=== PATIENT | female | born 1980 | race American Indian/Alaskan Native ===

== ENCOUNTER 2018-10-02 08:39 | Outpatient (CLI) | payer BC ==
[2018-10-02 11:21] VITALS: BP 122/66
== END 2018-10-02 12:05 | disposition home or self-care (01) ==
LOC: TRG 08:39
PROVIDERS: ATTEND Obstetrics & Gynecology
DX: O47.02 False labor before 37 completed weeks of gestation, second trimester (principal); Z3A.20 20 weeks gestation of pregnancy

== ENCOUNTER 2019-02-12 01:33 | Inpatient (IN) | payer BC, OTHER ==
[2019-02-12] MEDS ORDERED: LACTATED RINGERS 1,000 ML IV ONE (03:03)
--- NOTE | 2019-02-12 04:15 | Ultrasound Report ---
Limited OB ultrasound for biophysical profile FINDINGS: breathing movement, motion, tone and qualitative HENRIQUE all score 2/2 for a total score of 8/8. heart rate is 126 bpm. Signer Name: Felipe Hillman MD Signed: 02/12/2019 4:11 AM Workstation Name: [id number]
[2019-02-12] MEDS ORDERED: LIDOCAINE (2%) 20 MG/1 ML VIAL 20 ML MDV INFILTRATI ONE (05:57)
[2019-02-12] MEDS ORDERED: TERBUTALINE 1 MG/1 ML INJ SUB-Q PRN (05:57)
[2019-02-12] MEDS ORDERED: ONDANSETRON 4 MG/2 ML INJ IV PRN (05:57)
[2019-02-12] MEDS ORDERED: ePHEDrine SULFATE 50 MG/1 ML INJ IV PRN (05:57)
[2019-02-12] MEDS ORDERED: MINERAL OIL 30 ML ORAL LIQD PO PRN (05:57)
[2019-02-12] MEDS ORDERED: fentaNYL 100 MCG/2 ML INJ IV PRN (05:57)
[2019-02-12] MEDS ORDERED: LACTATED RINGERS 1,000 ML IV SCH (06:00)
[2019-02-12] MEDS ORDERED: OXYTOCIN 20 UNIT/1000ML DRIP 20 UNITS/1,000 ML BAG IV SCH ×2 (06:00→11:00)
[2019-02-12] MEDS ORDERED: OXYTOCIN DRIP 30 UNITS/500 ML BAG IV SCH (06:00)
[2019-02-12 06:14] LABS: Hematocrit 35.7 % (30.3-42.9); Hemoglobin 11.9 gm/dl (10.1-14.3); Mean Corpuscular HGB Conc 33 % (30-34); Mean Corpuscular Volume 91 fl (79-97); Platelet Count 217 K/mm3 (140-440); Red Blood Count 3.94 M/mm3 (3.65-5.03); Red Cell Distribution Width 14.2 % (13.2-15.2)
--- NOTE | 2019-02-12 07:05 | History and Physical Report ---
History of Present Illness Date of examination: 02/12/19 (Pt states contractions that started in the AM on 02/11/2019, then SROM @ 0630 on 02/12/2018.) Date of admission: 02/12/19 05:57 Chief complaint: Pt states contractions started around 0230 am on 02/11/2019, and that she SROM for brown fluid on 02/12/2019 @ 0630. History of present illness: EDC Confirmation: 02/16/2019 Gestational Age: 8 2/7 weeks Past History : 5 Term Births: 1 Living Children: 1 Para: 1 Aborta: 3 Elect. Ab: 1 Spont. Ab: 2 # 1 Delivery date: 10/02/1999 Weeks Gestation: 40 Delivery type: Hours of labor: 12 Anesthesia type: none Delivery location: [facility] Infant Sex: Male weight: 8lbs 9oz Name: Palomo Comments: none # 2 Delivery date: 11/28/2008 Delivery type: EAB # 3 Delivery date: 2017 Delivery type: SAB # 4 Delivery date: 2018 Delivery type: SAB Past Medical History: Reviewed history from 09/01/2014 and no changes required: Negative Past Medical History morbidly obese lost 133 pounds Past Surgical History: Reviewed history from 06/20/2016 and no changes required: D&C: 2009 lap band 2010. north side fell ruptured the stomach. required emergancy epl lap. tore the stomach. 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 Smoking History: Patient has never smoked. Infection History Hx of STD: HSV HIV Risk Eval: low risk Hepatitis B Risk Eval: low risk Personal hx. of genital herpes: yes Partner hx. of genital herpes: no Rash, Viral, or Febrile illness since last LMP? no Varicella/Chicken Pox Status: Previous Disease Genetic History ADVANCED MATERNAL AGE Congenital Heart Defect: Mom: no Dad: no Jason Disease: Mom: no Dad: no Thalassemia Mom: no Dad: no Neural Tube Defect Mom: no Dad: no Down's Syndrome Mom: no Dad: no Jon-Sachs Mom: no Dad: no Sickle Cell Disease/Trait Mom: no Dad: no Hemophilia Mom: no Dad: no Muscular Dystrophy Mom: no Dad: no Cystic Fibrosis Mom: no Dad: no [place] Chorea Mom: no Dad: no Mental Retardation Mom: no Dad: no Fragile X Mom: no Dad: no Other Genetic/Chromosomal Disorder Mom: no Dad: no Child w/other defect Mom: no Dad: no Enviromental Exposures Xray Exposure: no Medication, drug, or alcohol use since LMP: no Chemical/Other Exposure: no Exposure to Cat Liter: no Hx of Parvovirus (Fifth Disease): no Occupational Exposure to Children: none Active Medications (reviewed today): PNV () MEDROXYPROGESTERONE ACETATE 10 MG ORAL TABLET (MEDROXYPROGESTERONE ACETATE) 1 tablet daily for 10 days. Current Allergies (reviewed today): BENADRYL (CAMPHOR GEL) (Critical) DIMETAPP (Critical) Past History Past Surgical History: D&C, other (Lap band placed. Fell and stomach ruptured, then lap band placed. 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 History: other (D&C) Family/Genetic History: none Social history: no significant social history - Obstetrical History Expected Date of Delivery: 02/16/19 Actual Gestation: 39 Week(s) 3 Day(s) : 5 Para: 1 Hx # Term Pregnancies: 1 Number of Pregnancies: 0 Spontaneous Abortions: 2 Induced : 1 Number of Living Children: 1 Medications and Allergies Allergies Allergy/AdvReac Type Severity Reaction Status Date / Time diphenhydramine Allergy Mild Shortness Verified 02/12/19 02:13 [From Benadryl] of Breath phenylpropanolamine Allergy Mild Unknown Verified 02/12/19 02:12 [From Dimetapp (brompheniramine-PPA)] brompheniramine Allergy Unknown Verified 02/12/19 02:12 [From Dimetapp (brompheniramine-PPA)] Home Medications Medication Instructions Recorded Confirmed Last Taken Type Vit-Fe Fumar-FA [ 1 tab PO QDAY 10/02/18 10/02/18 10/01/18 21:00 History Vitamin] 1 Active Meds: Active Medications Ephedrine Sulfate (Ephedrine Sulfate) 10 mg IV Q2M PRN PRN Reason: Hypotension Fentanyl (Sublimaze) 100 mcg IV Q2H PRN PRN Reason: Labor Pain Oxytocin/Sodium Chloride (Pitocin/Ns 20 Unit/1000ml Drip) 20 units in 1,000 mls @ 125 mls/hr IV DIRECT CHERY Oxytocin/Sodium Chloride (Pitocin/Ns 30 Unit/500ml) 30 units in 500 mls @ 4 mls/hr IV TITR CHERY; Protocol Lactated Ringer's (Lactated Ringers) 1,000 mls @ 125 mls/hr IV DIRECT CHERY Mineral Oil (Mineral Oil) 30 ml PO QHS PRN PRN Reason: Constipation Ondansetron HCl (Zofran) 4 mg IV Q8H PRN PRN Reason: Nausea And Vomiting Terbutaline Sulfate (Brethine) 0.25 mg SUB-Q ONCE PRN PRN Reason: Hyperstimulation/Hypertonicity Review of Systems All systems: negative - Vital Signs Vital signs: Vital Signs Pulse Pulse Ox 60 96 02/12/19 01:53 02/12/19 01:53 Temp Pulse Resp BP Pulse Ox 51 L 16 103/51 97 02/12/19 06:58 02/12/19 02:13 02/12/19 02:13 02/12/19 06:58 - Physical Exam Breasts: Positive: deferred Cardiovascular: Regular rate Lungs: Positive: Normal air movement Abdomen: Positive: normal appearance Genitourinary (Female): Positive: normal external genitalia, normal perenium Vulva: both: normal Vagina: Positive: normal moisture Uterus: Positive: normal size Anus/Rectum: Positive: normal perianal skin Extremities: Positive: normal Deep Tendon Reflex Grade: Normal +2 - Obstetrical FHR: category 1 Uterine Contraction Monitor Mode: External Uterine Contraction Pattern: Regular Uterine Tone Measurement Phase: Resting Uterine Contraction Intensity: Moderate Results Result Diagrams: 02/12/19 03:30 GBS NEGATIVE HBsAg Screen Negative Negative *1 RPR Non Reactive Non Reactive *2 Rubella Antibodies, IgG 4.83 index Immune >0.99 *3 Non-immune <0.90 Equivocal 0.90 - 0.99 Immune >0.99 ABO Grouping B *4 Rh Factor Positive *5 Please note: Prior records for this patient's ABO / Rh type are not available for additional verification. Antibody Screen Negative Negative *6 WBC 6.5 x10E3/uL 3.4-10.8 *7 RBC 4.31 x10E6/uL 3.77-5.28 *8 Hemoglobin 12.0 g/dL 11.1-15.9 *9 Hematocrit 37.4 % 34.0-46.6 *10 MCV 87 fL 79-97 *11 MCH 27.8 pg 26.6-33.0 *12 MCHC 32.1 g/dL 31.5-35.7 *13 RDW [H] 17.4 % 12.3-15.4 *14 Platelets 245 x10E3/uL 150-450 *15 Neutrophils 60 % Not Estab. *16 Lymphs 32 % Not Estab. *17 Monocytes 7 % Not Estab. *18 Eos 1 % Not Estab. *19 Basos 0 % Not Estab. *20 ! Immature Cells <No Reported Value> *21 Neutrophils (Absolute) 3.9 x10E3/uL 1.4-7.0 *22 Lymphs (Absolute) 2.1 x10E3/uL 0.7-3.1 *23 Monocytes(Absolute) 0.4 x10E3/uL 0.1-0.9 *24 Eos (Absolute) 0.1 x10E3/uL 0.0-0.4 *25 Baso (Absolute) 0.0 x10E3/uL 0.0-0.2 *26 ! Immature Granulocytes 0 % Not Estab. *27 ! Immature Grans (Abs) 0.0 x10E3/uL 0.0-0.1 *28 ! NRBC <No Reported Value> *29 Hematology Comments: <No Reported Value> *30 Tests: (2) Panel 417391 ([id number]) HIV Screen 4th Generation wRfx Non Reactive Non Reactive *31 Tests: (3) HCV Ab w/Rflx to Verification ([id number]) ! HCV Ab 0.1 s/co ratio 0.0-0.9 *32 Tests: (4) Comment: ([id number]) ! Comment: SPRCS *33 Non reactive HCV antibody screen is consistent with no HCV infection, unless recent infection is suspected or other evidence exists to indicate HCV infection. Tests: (5) Urine Culture, Routine ([id number]) Urine Culture, Routine Final report *34 Tests: (6) Result ([id number]) ! Result 1 No growth *35 Assessment and Plan A: Pt is 38 y.o. @ 39+ wks with ctxs started on 02/11/2019 @ 0230am. With SROM today at 0630 for "brown fluid". GBS negative. P: Admit for augmentation of labor. Pitocin per protocol. Epidural for pain management.
[2019-02-12] MEDS ORDERED: BICITRA ORAL LIQD 30ML ONE (07:40)
[2019-02-12] MEDS ORDERED: METOCLOPRAMIDE 10 MG/2 ML INJ ONE (07:40)
[2019-02-12] MEDS ORDERED: FAMOTIDINE 20 MG/2 ML INJ IV ONE (07:40)
[2019-02-12] MEDS ORDERED: KETAMINE/STERILE WATER 50 MG/ML SYRINGE ONE (07:42)
[2019-02-12] MEDS ORDERED: PROPOFOL 200 MG/20 ML VIAL IV ONE ×2 (07:42→08:16)
[2019-02-12] MEDS ORDERED: ceFAZolin 1 GM VIAL IV ONE ×2 (07:51→07:57)
--- NOTE | 2019-02-12 07:55 | Event Note ---
Date: 02/12/19 ( deceleration) Went to room to check on pt and pt had received pain medication before entering room. BP's 90's/40's heart rate in the 80's. Pt was on her left lateral side. Cervical exam per nurse 4-5cm. Second cervical exam 7-8/100/+1. Internal monitoring attempted, but heart rate remained in the 80's. Decision made to move to OR. Dr. Jnae on the unit , Dr. Monson aware.
[2019-02-12] MEDS ORDERED: ceFAZolin 1 GM VIAL ONE ×2 (07:59→08:12)
[2019-02-12] MEDS ORDERED: dexAMETHasone 20 MG/5 ML VIAL ONE (08:12)
[2019-02-12] MEDS ORDERED: KETOROLAC 30 MG/1 ML INJ ONE (08:12)
[2019-02-12] MEDS ORDERED: OXYTOCIN 10 UNIT/1 ML INJ ONE (08:12)
[2019-02-12] MEDS ORDERED: DEXMEDETOMIDINE 200 MCG/2 ML VIAL IV ONE (08:12)
[2019-02-12] MEDS ORDERED: ONDANSETRON 4 MG/2 ML INJ ONE (08:12)
[2019-02-12] MEDS ORDERED: SUCCINYLCHOLINE CHLORIDE 200 MG/10 ML INJ MDV ONE (08:12)
[2019-02-12] MEDS ORDERED: SODIUM CHLORIDE 0.9% 100 ML ONE (08:21)
--- NOTE | 2019-02-12 08:57 | Post Operative Note ---
Pre-op diagnosis: NRFHTs Post-op diagnosis: same Findings: viable male, apg 10/03 Procedure: Emergency c/s Anesthesia: GETShalonda Surgeon: BRANDON RICO Box Finisher: MARIANO RICKETTS Estimated blood loss: other (500mL) Pathology: list (placenta) Specimen disposition: to lab Condition: stable Disposition: PACU
--- NOTE | 2019-02-12 08:59 | Anesthesia Consultation ---
Anesthesia Consult and Med Hx Date of service: 02/12/19 - Airway Anesthetic Teeth Evaluation: Poor ROM Head & Neck: Adequate Mental/Hyoid Distance: Adequate Mallampati Class: Class II Intubation Access Assessment: Probably Good - Pulmonary Exam CTA: Yes - Cardiac Exam Cardiac Exam: RRR - Pre-Operative Health Status ASA Pre-Surgery Classification: ASA2, Emergency Proposed Anesthetic Plan: General - Pulmonary Hx Asthma: Yes (child) COPD: No Hx Pneumonia: No - Cardiovascular System Hx Hypertension: Yes (last 1999) - Central Nervous System Hx Seizures: No Hx Psychiatric Problems: No - Endocrine Hx Renal Disease: No Hx End Stage Renal Disease: No Hx Hypothyroidism: No Hx Hyperthyroidism: No - Hematic Hx Anemia: No Hx Sickle Cell Disease: No - Other Systems Hx Alcohol Use: No
--- NOTE | 2019-02-12 09:00 | Anesthesia Day of Surgery ---
Anesthesia Day of Surgery - Day of Surgery Patient Examined: Yes Patient H&P Reviewed: No (emergency) Patient is NPO: No (unknown, emergency)
[2019-02-12] MEDS ORDERED: MORPHINE 2 MG/1 ML INJ IV PRN (11:00)
[2019-02-12] MEDS ORDERED: NALOXONE 0.4 MG/1 ML INJ IV PRN (11:00)
[2019-02-12] MEDS ORDERED: LANOLIN/ZINC/DIMETHICONE (LANSINOH) 7 GM TP PRN (11:00)
[2019-02-12] MEDS ORDERED: D5W/LACTATED RINGERS 1,000 ML IV SCH (11:00)
[2019-02-12] MEDS ORDERED: WITCH HAZEL/ GLYCERIN PAD TP PRN (11:00)
[2019-02-12] MEDS ORDERED: MORPHINE 4 MG/1 ML INJ IV PRN (11:00)
[2019-02-12] MEDS ORDERED: SIMETHICONE 80 MG CHEW TAB PO PRN (11:00)
[2019-02-12] MEDS ORDERED: PROMETHAZINE 25 MG RECT SUPP PR PRN (11:00)
--- NOTE | 2019-02-12 11:05 | Post Anesthesia Evaluation ---
- Post Anesthesia Evaluation Patient Participated: Yes Airway Patent: Yes Stable Respiratory Function: Yes Nausea/Vomiting: No Temp > 96.8F: Yes Pain Manageable: Yes Adequeate Hydration: Yes Anesthesia Complications: No Block Receding Appropriately: Not Applicable
[2019-02-12] MEDS: ACETAMINOPHEN 325 MG TAB PO SCH ×3 (11:36→21:20)
--- NOTE | 2019-02-12 11:48 | Event Note ---
Date: 02/12/19 Recv'd call at 1133 from [facility] L&D lottery manager requesting an abdominal xray due to concerns with the surgical count.
--- NOTE | 2019-02-12 12:35 | XRay Report ---
ABDOMEN 1 VIEW(S) INDICATION / CLINICAL INFORMATION: Instrument count-foreign body.. COMPARISON: None available. FINDINGS: TUBES / LINES: None. BOWEL GAS PATTERN: No significant abnormality. FREE AIR / EXTRALUMINAL GAS: None seen. ADDITIONAL FINDINGS: No significant additional findings. IMPRESSION: 1. No significant abnormality. No foreign body identified. Signer Name: Yair Alvares MD Signed: 02/12/2019 12:31 PM Workstation Name: [id number]
[2019-02-12] MEDS: KETOROLAC 30 MG/1 ML INJ IV SCH ×2 (14:45→20:28)
[2019-02-12] MEDS: ceFAZolin/NS 1 GM/50 ML 1 GM/50 ML BAG IV SCH (15:57)
--- NOTE | 2019-02-12 17:48 | Operative Report ---
Operative Report Operative Report: Date of procedure: 02/12/2019 Pre-operative diagnosis: 39 weeks gestation Advanced maternal age Meconium stained amniotic fluid Category 3 tracing Remote from delivery Post-operative diagnosis: Same Procedure name(s): Stat Primary low transverse section via Pfannenstiel skin incision Surgeon: Dr. Padilla Micropaleontologist: Dr. Suyapa Monson Anesthesia: Gen. endotracheal anesthesia EBL: 500 mL Urine output: Fluids: Findings: Liveborn male Apgars of 8 and 8 at one and 5 minutes Grossly normal fallopian tubes and ovaries bilaterally Indications: Provided arrived on the unit noting that Jude Husain had been called for patient due to prolonged bradycardia. Patient was noted to be in the operating room 1 provider arrived and heart tones were noted to be in the low 1 teens to 100s. Patient was examined by news gathering technician and provider made aware that patient appeared to have an anterior lip presenting. Patient was then asked to push to see if there would be reduction of the anterior lip. There was no reduction of the anterior lip and due to pain patient was not able to push effectively. Decision was made at that time to proceed with stat section n Procedure: Patient was taking to the operating room. Patient was then prepped and draped in sterile fashion. She was placed under general anesthesia. A low transverse skin incision was made with the scalpel and carried down to the underlying layer of fascia with the scalpel. The fascia was then incised in the midline and this incision was extended bilaterally with the scalpel. The rectus muscles were then bluntly divided in the midline. The peritoneum was identified and entered into bluntly. The bladder blade was placed. A lower transverse uterine incision was made with the scalpel and extended bilaterally with the blunt dissection. Conium stained fluid was noted upon entry into the uterine cavity. The 's head was then delivered atraumatically. The anterior shoulder and rest of infant delivered without difficulty. The umbilical cord was clamped x2. The cord was cut. The was then placed in sterile bassinet. The cord blood was collected. The placenta was manually extracted in its entirety. The uterus was exteriorized and cleared of all clots and debris. The uterine incision was closed using 0 Vicryl in a running locking fashion. A second imbricating layer of the same suture was then created. It was at this point that Dr. Suyapa Monson assumed care of the patient and completed the surgery. Please see her operative report for details on completion of the surgery. Patient was fairly hemostatic and stable upon my scrubbing out of the surgery.
[2019-02-12] MEDS: HYPROMELLOSE 0.5% OPHTH SOLN 15 ML OS PRN (19:19)
[2019-02-12 20:06] LABS: Hematocrit 30.7 % (30.3-42.9); Hemoglobin 10.5 gm/dl (10.1-14.3)
[2019-02-13] MEDS: ceFAZolin/NS 1 GM/50 ML 1 GM/50 ML BAG IV SCH (00:17)
[2019-02-13] MEDS: HYPROMELLOSE 0.5% OPHTH SOLN 15 ML OS PRN ×2 (01:03→05:47)
[2019-02-13] MEDS: KETOROLAC 30 MG/1 ML INJ IV SCH ×2 (01:46→07:59)
[2019-02-13] MEDS: ACETAMINOPHEN 325 MG TAB PO SCH (05:45)
--- NOTE | 2019-02-13 07:36 | Progress Note ---
Assessment and Plan A: 38 y.o. s/p due to bradycardia, PPD #1 P: Continue to monitor mother and status Continue with care Subjective - Subjective Date of service: 02/13/19 (Pt states doing well s/p . ) Principal diagnosis: delivery for bradycardia Interval history: EDC Confirmation: 02/16/2019 Gestational Age: 8 2/7 weeks Past History : 5 Term Births: 1 Living Children: 1 Para: 1 Aborta: 3 Elect. Ab: 1 Spont. Ab: 2 # 1 Delivery date: 10/02/1999 Weeks Gestation: 40 Delivery type: Hours of labor: 12 Anesthesia type: none Delivery location: [facility] Infant Sex: Male weight: 8lbs 9oz Name: Palomo Comments: none # 2 Delivery date: 11/28/2008 Delivery type: EAB # 3 Delivery date: 2017 Delivery type: SAB # 4 Delivery date: 2018 Delivery type: SAB Past Medical History: Reviewed history from 09/01/2014 and no changes required: Negative Past Medical History morbidly obese lost 133 pounds Past Surgical History: Reviewed history from 06/20/2016 and no changes required: D&C: 2009 lap band 2010. north side fell ruptured the stomach. required emergancy epl lap. tore the stomach. 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 Smoking History: Patient has never smoked. Infection History Hx of STD: HSV HIV Risk Eval: low risk Hepatitis B Risk Eval: low risk Personal hx. of genital herpes: yes Partner hx. of genital herpes: no Rash, Viral, or Febrile illness since last LMP? no Varicella/Chicken Pox Status: Previous Disease Genetic History ADVANCED MATERNAL AGE Congenital Heart Defect: Mom: no Dad: no Jason Disease: Mom: no Dad: no Thalassemia Mom: no Dad: no Neural Tube Defect Mom: no Dad: no Down's Syndrome Mom: no Dad: no Jon-Sachs Mom: no Dad: no Sickle Cell Disease/Trait Mom: no Dad: no Hemophilia Mom: no Dad: no Muscular Dystrophy Mom: no Dad: no Cystic Fibrosis Mom: no Dad: no [place] Chorea Mom: no Dad: no Mental Retardation Mom: no Dad: no Fragile X Mom: no Dad: no Other Genetic/Chromosomal Disorder Mom: no Dad: no Child w/other defect Mom: no Dad: no Enviromental Exposures Xray Exposure: no Medication, drug, or alcohol use since LMP: no Chemical/Other Exposure: no Exposure to Cat Liter: no Hx of Parvovirus (Fifth Disease): no Occupational Exposure to Children: none Active Medications (reviewed today): PNV () MEDROXYPROGESTERONE ACETATE 10 MG ORAL TABLET (MEDROXYPROGESTERONE ACETATE) 1 tablet daily for 10 days. Current Allergies (reviewed today): BENADRYL (CAMPHOR GEL) (Critical) DIMETAPP (Critical) Patient reports: appetite normal, voiding normally, pain well controlled, flatus, ambulating normally : doing well Objective - Vital Signs Latest vital signs: Vital Signs Temp Pulse Resp BP BP Pulse Ox 02/13/19 05:00 97.8 F 59 L 20 118/49 97 02/13/19 01:20 98.4 F 54 L 20 91/52 95 02/12/19 21:18 98.7 F 56 L 20 106/55 97 02/12/19 17:11 98.2 F 47 L 16 100/52 02/12/19 10:51 57 L 16 103/50 100 02/12/19 10:35 97.5 F L 57 L 16 103/50 98 02/12/19 10:00 97.0 F L 49 L 19 92/54 98 02/12/19 09:45 52 L 20 95/45 98 02/12/19 09:30 58 L 21 99/45 98 02/12/19 09:15 61 21 92/51 99 02/12/19 09:10 63 19 92/51 99 02/12/19 09:05 60 20 95/49 100 02/12/19 09:00 96.0 F L 61 21 97/49 100 02/12/19 07:36 88 98 Intake and Output 02/12/19 02/13/19 02/13/19 22:59 06:59 14:59 Intake Total 50 120 Output Total 2200 1200 Balance -2150 -1080 Intake: IV 50 ANCEF/NS 1 GM/50 ML 1 gm 50 In 50 ml @ 100 mls/hr IV Q8H [facility] Rx#:[id number] Oral 120 Output: Urine 2200 1200 Indwelling Catheter 2200 Void 1200 Other: Total, Intake Amount 120 Total, Output Amount 400 700 # Voids Void 1 - Exam Breasts: Present: deferred Cardiovascular: Present: Regular rate Lungs: Present: Normal air movement Abdomen: Present: normal appearance, soft, normal bowel sounds Vulva: both: normal Uterus: Present: normal, firm, other (Minimal rubra) Extremities: Present: normal Deep Tendon Reflex Grade: Normal +2 Incision: Present: dry, intact, other (No draninage on dressing noted.), dressed
[2019-02-13] MEDS ORDERED: TETANUS,DIPH,PERTUSS(ACELL) VACCINE 0.5 ML SYRINGE IM ONE (10:00)
--- NOTE | 2019-02-13 10:25 | Operative Report ---
PREOPERATIVE DIAGNOSIS: Please see Dr. Padilla's note, intrauterine at 39 weeks, advanced maternal age, meconium stained amniotic fluid, active labor, category 3 tracing remote from delivery. POSTOPERATIVE DIAGNOSIS: Please see Dr. Padilla's note, intrauterine at 39 weeks, advanced maternal age, meconium stained amniotic fluid, active labor, category 3 tracing remote from delivery. PROCEDURE: Stat primary low transverse via Pfannenstiel incision. SURGEON: Dr. Monson. CO-SURGEON: Suyapa Monson MD ANESTHESIA: General endotracheal anesthesia. ESTIMATED BLOOD LOSS: 500 mL. FINDINGS: Liveborn male , weight unknown at the time of this note. Apgars 8 and 8, 8 at 1 minute, 8 at 5 minutes. Grossly normal uterus, tubes, and ovaries. As mentioned previously, please see Dr. Padilla's previous note. DESCRIPTION OF PROCEDURE: Upon arrival, the uterus was exteriorized and the uterine incision had been closed. There was bleeding noted on the left aspect of the incision that was made hemostatic with a 2-0 Vicryl in a [id number] fashion. Approximately 5 cm hematoma was noted involving the cardinal ligament, however, upon prolonged visualization and manipulation, the hematoma appeared stable. The bladder flap and/or the bladder and/or ureters appeared to be involved. The uterus was allowed back into the pelvic cavity. The incision was irrigated with warm normal saline. Once hemostasis was noted, Surgicel was applied for further hemostasis, at which point, the rectus muscles were reapproximated using 0 Vicryl interrupted simple stitch x 4. Once hemostasis was noted, the fascia was reapproximated using 0 Vicryl in a simple running stitch. Once hemostasis was noted, the subcuticular adipose tissue was reapproximated using 0 Vicryl in a simple stitch x 3. The skin was reapproximated using 4-0 Vicryl on a Jhon needle in subcuticular manner. The counts were correct x 3. The procedure was ended and the patient was taken to recovery room in stable condition. JOB# [id number] MARIFERR/MONIKA
[2019-02-13] MEDS: oxyCODONE /ACETAMINOPHEN 5-325MG TAB PO PRN ×2 (11:07→17:41)
[2019-02-13] MEDS ORDERED: FLU VACC QUAD 2019-20 (3 YR UP)/PF 60 MCG/0.5 ML SYRINGE IM ONE (12:00)
[2019-02-13] MEDS: IBUPROFEN 800 MG TAB PO PRN ×2 (14:17→19:43)
[2019-02-14] MEDS: oxyCODONE /ACETAMINOPHEN 5-325MG TAB PO PRN ×5 (00:08→22:44)
[2019-02-14] MEDS: ALUM-MAG HYDROXIDE-SIMETHICONE 200-200-20MG/5ML ORAL LIQD 30 ML PO PRN ×2 (00:38→09:10)
--- NOTE | 2019-02-14 00:52 | XRay Report ---
CHEST 1 VIEW INDICATION / CLINICAL INFORMATION: chest tightness. COMPARISON: None available. FINDINGS: SUPPORT DEVICES: None. HEART / MEDIASTINUM: No significant abnormality. LUNGS / PLEURA: No significant pulmonary or pleural abnormality. No pneumothorax. There is minimal le ft basilar atelectasis. ADDITIONAL FINDINGS: No significant additional findings. IMPRESSION: 1 No significant abnormality. Signer Name: Felipe Hillman MD Signed: 02/14/2019 12:48 AM Workstation Name: [id number]
--- NOTE | 2019-02-14 01:20 | Progress Note ---
Assessment and Plan - Patient Problems (1) Chest pain Current Visit: Yes Status: Acute Qualifiers: Chest pain type: other chest pain Qualified Code(s): R07.89 - Other chest pain; R07.8 - Other chest pain Plan to address problem: Patient had earlier EKG which shows sinus rhythm atrial premature complexes official reading still pending at this time patient went cardiac history. Patient with normal chest x-ray and O2 sats 9900% on room air. Pain does not appear to be cardiac possible etiology reflux versus musculoskeletal costochondritis will obtain a hospitalist consult the pain persists as treatment of reflux disease. Repeat CBC is pending (2) Status post section Current Visit: Yes Status: Acute (3) H/O gastric bypass Current Visit: Yes Status: Acute Subjective Date of service: 02/14/19 Principal diagnosis: delivery for bradycardia Interval history: Called to see patient secondary to her second complaint of chest tightness. Patient states she feels a little midsternal pain sometimes with taking a deep breath or coughing. She denies any radiation of pain or productive cough. Objective - Constitutional Vitals: Vital Signs - 12hr 02/13/19 02/13/19 02/14/19 16:09 18:00 00:55 Temperature 98.3 F 98.5 F Pulse Rate 60 97 H 59 L Respiratory 18 21 20 Rate Blood Pressure 92/36 Blood Pressure 98/45 [Left] O2 Sat by Pulse 98 99 98 Oximetry 02/14/19 00:56 Temperature 98.2 F Pulse Rate Respiratory 20 Rate Blood Pressure 95/56 Blood Pressure [Left] O2 Sat by Pulse Oximetry General appearance: Present: no acute distress, obese, other (patient presently breast-feeding her baby) - Neck Neck: supple - Respiratory Respiratory effort: normal - Breasts Breasts: deferred - Cardiovascular Rhythm: regular Extremities: no ischemia Extremity abnormal: edema - Gastrointestinal General gastrointestinal: Present: soft Rectal Exam: deferred - Genitourinary Female genitourinary: deferred - Integumentary Integumentary: clear, warm, dry - Neurologic Neurologic: moves all extremities - Psychiatric Psychiatric: memory intact, appropriate mood/affect, intact judgment & insight - Labs CBC & Chem 7: 02/12/19 19:49 - Imaging and cardiology EKG: report reviewed Chest x-ray: report reviewed Medications & Allergies - Medications Allergies/Adverse Reactions: Allergies diphenhydramine [From Benadryl] Allergy (Mild, Verified 02/12/19 02:13) Shortness of Breath phenylpropanolamine [From Dimetapp (brompheniramine-PPA)] Allergy (Mild, Verified 02/12/19 02:12) Unknown Had as a child. States her mother told her she had a reaction not sure reaction. brompheniramine [From Dimetapp (brompheniramine-PPA)] Allergy (Verified 02/12/19 02:12) Unknown Had reaction as a child; mother told her she had a reaction; unknown reaction by patient. Home Medications: Home Medications Medication Instructions Recorded Confirmed Last Taken Type Vit-Fe Fumar-FA [ 1 tab PO QDAY 10/02/18 02/12/19 02/12/19 13:52 History Vitamin] Ibuprofen [Motrin 800 MG tab] 800 mg PO TID PRN #30 tablet 02/12/19 Unknown Rx Lidocain2.5%/Prilocai2.5% [Emla] 5 gm TP ONCE #1 tube 02/12/19 Unknown Rx oxyCODONE /ACETAMINOPHEN [Percocet 1 tab PO Q6HR PRN #20 tablet 02/12/19 Unknown Rx 5/325 mg] Active Medications: Generic Name Dose Route Start Last Admin Trade Name Rubén PRN Reason Stop Dose Admin Acetaminophen 650 mg 02/12/19 12:00 02/13/19 05:45 Tylenol PO 650 mg Q6H CHERY Administration Al Hydrox/Mg Hydrox/Simethicone 30 ml 02/14/19 00:29 02/14/19 00:38 Alum-Mag Hydrox-Simeth [id number]/5ml PO 30 ml Q4H PRN Administration Indigestion Artificial Tears 1 drops 02/12/19 17:47 02/13/19 05:47 Isopto Tears 0.5% OS 1 drops Q6H PRN Administration Dry Eye(s) Dextrose/Lactated Ringer's 1,000 mls @ 125 mls/hr 02/12/19 11:00 02/12/19 20:34 D5lr IV 125 mls/hr DIRECT CHERY Administration Oxytocin/Sodium Chloride 20 units in 1,000 mls @ 250 mls/hr 02/12/19 11:00 Pitocin/Ns 20 Unit/1000ml Drip IV DIRECT CHERY Ibuprofen 800 mg 02/13/19 08:45 02/13/19 19:43 Ibuprofen PO 800 mg Q6H PRN Administration Pain, Mild (1-3) Morphine Sulfate 2 mg 02/12/19 11:00 02/12/19 17:04 Morphine IV 2 mg Q4H PRN Administration Pain, Moderate (4-6) Morphine Sulfate 4 mg 02/12/19 11:00 02/13/19 01:02 Morphine IV 4 mg Q4H PRN Administration Pain , Severe (7-10) Multi-Ingredient Ointment 1 applic 02/12/19 11:00 Lansinoh TP PRN PRN dryness/cracking Naloxone HCl 0.1 mg 02/12/19 11:00 Naloxone IV Q2MIN PRN Res Rate </= 8 or 02 SAT < 92% Oxycodone/Acetaminophen 1 tab 02/13/19 08:45 02/14/19 00:08 Percocet 5/325 PO 1 tab Q6H PRN Administration Pain, Moderate (4-6) Promethazine HCl 25 mg 02/12/19 11:00 Phenergan DC Q6H PRN N/V IF NPO AND NO IV ACCESS Simethicone 80 mg 02/12/19 11:00 Mylicon PO Q6H PRN Gas pain Sodium Chloride 10 ml 02/12/19 11:00 Sodium Chloride Flush Syringe 10 Ml IV 02/22/19 10:59 PRN NR Witch Crista/Glycerin 1 each 02/12/19 11:00 Tucks Pad TP PRN PRN Hemorrhoids/cleansing/soothing
[2019-02-14 01:30] LABS: Basophils % (Auto) 0.3 % (0.0-1.8); Eosinophils # (Auto) 0.1 K/mm3 (0.0-0.4); Hemoglobin 8.7 gm/dl (10.1-14.3); Lymphocytes # (Auto) 2.4 K/mm3 (1.2-5.4); Lymphocytes % (Auto) 20.2 % (13.4-35.0); Mean Corpuscular HGB Conc 34 % (30-34); Mean Corpuscular Volume 91 fl (79-97); Monocytes # (Auto) 0.8 K/mm3 (0.0-0.8); Monocytes % (Auto) 7.1 % (0.0-7.3); Platelet Count 169 K/mm3 (140-440); Red Blood Count 2.87 M/mm3 (3.65-5.03); Red Cell Distribution Width 15.1 % (13.2-15.2)
[2019-02-14] MEDS ORDERED: FAMOTIDINE 20 MG/2 ML INJ IV SCH (02:00)
[2019-02-14] MEDS ORDERED: NITROGLYCERIN 0.4 MG TAB SUBL SL PRN (02:16)
[2019-02-14] MEDS: IBUPROFEN 800 MG TAB PO PRN ×2 (02:24→09:09)
--- NOTE | 2019-02-14 02:50 | Consultation ---
<ANTONIO ABBASI - Last Filed: 02/14/19 02:55> History of Present Illness - Reason for Consult Consult date: 02/14/19 Chest Pain Requesting physician: LORRAINE FROST - History of Present Illness 38-year-old -Iraqi female with history of HSV and obesity who is s/p delivery on 02/12/19. We are asked to see patient in consultation for chest pain. Pt states that she has midsternal non radiating chest pain, wh ich she rates 4/10. She describes the pain as chest pressure. The pain is intermittent. It is present with deep inspiration and cough. She denies SOB, pain radiation, n/v, or diaphoresis. She is able to talk in complete sentences and maintain saturation of 99-100% on RA. Pt denies any previous cardiac work up. Thank you for the consult and allowing us follow along. Past History Past Medical History: other (obesity, HSV) Past Surgical History: (x1 (02/12/2019)), Other ( x1, D&C (05/2016), Gastric Bypass (2010)) Social history: no significant social history, lives with family ([facility]). denies: smoking, alcohol abuse Family history: CAD (maternal grandmother at age 47), diabetes (father DM2) Medications and Allergies Allergies Allergy/AdvReac Type Severity Reaction Status Date / Time diphenhydramine Allergy Mild Shortness Verified 02/12/19 02:13 [From Benadryl] of Breath phenylpropanolamine Allergy Mild Unknown Verified 02/12/19 02:12 [From Dimetapp (brompheniramine-PPA)] brompheniramine Allergy Unknown Verified 02/12/19 02:12 [From Dimetapp (brompheniramine-PPA)] Home Medications Medication Instructions Recorded Confirmed Last Taken Type Vit-Fe Fumar-FA [ 1 tab PO QDAY 10/02/18 02/12/19 02/12/19 13:52 History Vitamin] Lidocain2.5%/Prilocai2.5% [Emla] 5 gm TP ONCE #1 tube 02/12/19 Unknown Rx oxyCODONE /ACETAMINOPHEN [Percocet 1 tab PO Q6HR PRN #20 tablet 02/12/19 Unknown Rx 5/325 mg] Docusate Sodium [Colace] 100 mg PO BID PRN #30 capsule 02/15/19 Unknown Rx Iron Polysaccharide Complex 150 mg PO DAILY #90 capsule 02/15/19 Unknown Rx [Ferric X-150] Active Meds: Active Medications Acetaminophen (Tylenol) 650 mg PO Q6H CHERY Last Admin: 02/13/19 05:45 Dose: 650 mg Documented by: Al Hydrox/Mg Hydrox/Simethicone (Alum-Mag Hydrox-Simeth [id number]/5ml) 30 ml PO Q4H PRN PRN Reason: Indigestion Last Admin: 02/14/19 00:38 Dose: 30 ml Documented by: Artificial Tears (Isopto Tears 0.5%) 1 drops OS Q6H PRN PRN Reason: Dry Eye(s) Last Admin: 02/13/19 05:47 Dose: 1 drops Documented by: Famotidine (Pepcid) 20 mg IV BID CHERY Dextrose/Lactated Ringer's (D5lr) 1,000 mls @ 125 mls/hr IV DIRECT CHERY Last Admin: 02/12/19 20:34 Dose: 125 mls/hr Documented by: Oxytocin/Sodium Chloride (Pitocin/Ns 20 Unit/1000ml Drip) 20 units in 1,000 mls @ 250 mls/hr IV DIRECT CHERY Ibuprofen (Ibuprofen) 800 mg PO Q6H PRN PRN Reason: Pain, Mild (1-3) Last Admin: 02/14/19 02:24 Dose: 800 mg Documented by: Morphine Sulfate (Morphine) 2 mg IV Q4H PRN PRN Reason: Pain, Moderate (4-6) Last Admin: 02/12/19 17:04 Dose: 2 mg Documented by: Morphine Sulfate (Morphine) 4 mg IV Q4H PRN PRN Reason: Pain , Severe (7-10) Last Admin: 02/13/19 01:02 Dose: 4 mg Documented by: Multi-Ingredient Ointment (Lansinoh) 1 applic TP PRN PRN PRN Reason: dryness/cracking Naloxone HCl (Naloxone) 0.1 mg IV Q2MIN PRN PRN Reason: Res Rate </= 8 or 02 SAT < 92% Nitroglycerin (Nitrostat) 0.4 mg SL Q5M PRN PRN Reason: Chest Pain Oxycodone/Acetaminophen (Percocet 5/325) 1 tab PO Q6H PRN PRN Reason: Pain, Moderate (4-6) Last Admin: 02/14/19 00:08 Dose: 1 tab Documented by: Pantoprazole Sodium (Protonix) 40 mg IV BID CHERY Promethazine HCl (Phenergan) 25 mg MT Q6H PRN PRN Reason: N/V IF NPO AND NO IV ACCESS Simethicone (Mylicon) 80 mg PO Q6H PRN PRN Reason: Gas pain Sodium Chloride (Sodium Chloride Flush Syringe 10 Ml) 10 ml IV PRN NR Stop: 02/22/19 10:59 Witch Crista/Glycerin (Tucks Pad) 1 each TP PRN PRN PRN Reason: Hemorrhoids/cleansing/soothing Review of Systems All systems: negative Cardiovascular: chest pain (chest tightness) Exam - Physical Exam Narrative exam: Physical exam General appearance: Present: No acute distress, alert and oriented 3, well developed, well nourished, adult female - EENT Eyes: Present: PERRL, EOM intact ENT: hearing intact, normal dentition - Neck Neck: Present: supple, normal ROM - Respiratory Respiratory effort: Non-labored Respiratory: Clear throughout - Cardiovascular Heart rate: 65 (bpm) Rhythm: Sinus rhythm Heart Sounds: Present: S1 & S2. Absent: rub, click - Extremities Extremities: no ischemia, pulses intact, - Peripheral Assessment Peripheral Pulses: within normal limits - Abdominal General gastrointestinal: soft, non-tender, normal bowel sounds - Integumentary Integumentary: Present: warm, dry - Musculoskeletal Musculoskeletal: Able to move all extremities -Neurological Neurological: CN II-XII intact - Psychiatric Psychiatric: Appropriate for situation ,cooperative - Constitutional Vitals: Temp Pulse Resp BP Pulse Ox 98.2 F 59 L 20 95/56 98 02/14/19 00:56 02/14/19 00:55 02/14/19 00:56 02/14/19 00:56 02/14/19 00:55 Results - Labs CBC & Chem 7: 02/14/19 00:45 Labs: Abnormal lab results 02/14/19 Range/Units 00:45 WBC 11.8 H (4.5-11.0) K/mm3 RBC 2.87 L (3.65-5.03) M/mm3 Hgb 8.7 L (10.1-14.3) gm/dl Hct 26.0 L (30.3-42.9) % Seg Neutrophils % 71.4 H (40.0-70.0) % Seg Neutrophils # 8.4 H (1.8-7.7) K/mm3 - Imaging and Cardiology Chest x-ray: report reviewed (FINDINGS: SUPPORT DEVICES: None. HEART / MEDIASTINUM: No significant abnormality. LUNGS / PLEURA: No significant pulmonary or pleural abnormality. No pneumothorax. There is minimal left basilar atelectasis. ADDITIONAL FINDINGS: No significant additional findings.IMPRESSION: 1 No significant abnormality. ), image reviewed Assessment and Plan Acute Atypical Chest Pain -EKG unrevealing for acute ischemic abnormalities -CXR negative -Continue supportive care -Pain mgmt -Cardiac enzymes pending; will trend -Cardiology consulted Hx Gastric Bypass -2010 -Start PPI BID S/P - on 02/12/19 -Continue mgmt per primary <ROGE MONROE - Last Filed: 02/15/19 23:40> Medications and Allergies Active Meds: Active Medications Acetaminophen (Tylenol) 650 mg PO Q6H CHERY Last Admin: 02/13/19 05:45 Dose: 650 mg Documented by: Al Hydrox/Mg Hydrox/Simethicone (Alum-Mag Hydrox-Simeth [id number]/5ml) 30 ml PO Q4H PRN PRN Reason: Indigestion Last Admin: 02/14/19 00:38 Dose: 30 ml Documented by: Artificial Tears (Isopto Tears 0.5%) 1 drops OS Q6H PRN PRN Reason: Dry Eye(s) Last Admin: 02/13/19 05:47 Dose: 1 drops Documented by: Dextrose/Lactated Ringer's (D5lr) 1,000 mls @ 125 mls/hr IV DIRECT CHERY Last Admin: 02/12/19 20:34 Dose: 125 mls/hr Documented by: Oxytocin/Sodium Chloride (Pitocin/Ns 20 Unit/1000ml Drip) 20 units in 1,000 mls @ 250 mls/hr IV DIRECT CHERY Ibuprofen (Ibuprofen) 800 mg PO Q6H PRN PRN Reason: Pain, Mild (1-3) Last Admin: 02/14/19 02:24 Dose: 800 mg Documented by: Morphine Sulfate (Morphine) 2 mg IV Q4H PRN PRN Reason: Pain, Moderate (4-6) Last Admin: 02/12/19 17:04 Dose: 2 mg Documented by: Morphine Sulfate (Morphine) 4 mg IV Q4H PRN PRN Reason: Pain , Severe (7-10) Last Admin: 02/13/19 01:02 Dose: 4 mg Documented by: Multi-Ingredient Ointment (Lansinoh) 1 applic TP PRN PRN PRN Reason: dryness/cracking Naloxone HCl (Naloxone) 0.1 mg IV Q2MIN PRN PRN Reason: Res Rate </= 8 or 02 SAT < 92% Nitroglycerin (Nitrostat) 0.4 mg SL Q5M PRN PRN Reason: Chest Pain Oxycodone/Acetaminophen (Percocet 5/325) 1 tab PO Q6H PRN PRN Reason: Pain, Moderate (4-6) Last Admin: 02/14/19 00:08 Dose: 1 tab Documented by: Pantoprazole Sodium (Protonix) 40 mg IV BID CHERY Promethazine HCl (Phenergan) 25 mg MT Q6H PRN PRN Reason: N/V IF NPO AND NO IV ACCESS Simethicone (Mylicon) 80 mg PO Q6H PRN PRN Reason: Gas pain Sodium Chloride (Sodium Chloride Flush Syringe 10 Ml) 10 ml IV PRN NR Stop: 02/22/19 10:59 Witch Crista/Glycerin (Tucks Pad) 1 each TP PRN PRN PRN Reason: Hemorrhoids/cleansing/soothing Exam - Constitutional Vitals: Temp Pulse Resp BP Pulse Ox 98.2 F 59 L 20 95/56 98 02/14/19 00:56 02/14/19 00:55 02/14/19 00:56 02/14/19 00:56 02/14/19 00:55 Results - Labs CBC & Chem 7: 02/14/19 00:45 02/14/19 02:41 Labs: Abnormal lab results 02/14/19 02/14/19 Range/Units 00:45 02:41 WBC 11.8 H (4.5-11.0) K/mm3 RBC 2.87 L (3.65-5.03) M/mm3 Hgb 8.7 L (10.1-14.3) gm/dl Hct 26.0 L (30.3-42.9) % Seg Neutrophils % 71.4 H (40.0-70.0) % Seg Neutrophils # 8.4 H (1.8-7.7) K/mm3 Chloride 110.0 H (98-107) mmol/L Carbon Dioxide 19 L (22-30) mmol/L Creatinine 0.6 L (0.7-1.2) mg/dL Calcium 7.9 L (8.4-10.2) mg/dL Total Creatine Kinase 607 H (30-135) units/L CK-MB (CK-2) 6.6 H (0.0-4.0) ng/mL Total Protein 5.1 L (6.3-8.2) g/dL Albumin 2.7 L (3.9-5) g/dL Assessment and Plan 38-year-old woman with a history of obesity, status post has been consulted for chest pain since worse with breathing and talking. Agree with plan as stated above, in addition since she has several risk factors for pulmonary emboli, check CT chest, follow results
[2019-02-14 03:06] LABS: Creatine Kinase MB 6.6 ng/mL (0.0-4.0)
[2019-02-14 03:07] LABS: Alanine Aminotransferase 14 units/L (7-56); Albumin 2.7 g/dL (3.9-5); BUN/Creatinine Ratio 17; Blood Urea Nitrogen 10 mg/dL (7-17); Calcium 7.9 mg/dL (8.4-10.2); Hemolysis Index 14
[2019-02-14 06:57] LABS: Creatine Kinase MB 6.1 ng/mL (0.0-4.0)
--- NOTE | 2019-02-14 08:27 | Progress Note ---
Assessment and Plan Pt resting in bed actively BF . Incision clean and dry with steri strips in place. Light vaginal bleeding. Fundus firm at umbilicus. Pain managed with medication. Confirms +flatus. Ambulates and voids without difficulty. Pt still reports chest tightness with inspiration. Denies SOB, chest pain, NEAL, lightheadedness, blurry vision, and swelling. - Patient Problems (1) Chest pain Current Visit: Yes Status: Acute Qualifiers: Chest pain type: other chest pain Qualified Code(s): R07.89 - Other chest pain; R07.8 - Other chest pain Plan to address problem: Cardiology consult initiated. Trending cardio enzymes. Pt declines CT scan d/t concerns with effects of contrast on BF. RN will notify cardio. (2) delivery delivered Current Visit: Yes Status: Acute Plan to address problem: Continue with PP pathway (3) Anemia Current Visit: Yes Status: Acute Plan to address problem: H/H drop from 12/25 to 10/21. BP 90-110s/40-50, HR 50-60. Pt is asymptomatic and ambulates without difficulty. Denies lightheadedness, blurry vision, palpitations, and dizziness.Cardiology consult established for c/o chest tightness. Subjective - Subjective Date of service: 02/14/19 Principal diagnosis: delivery for bradycardia POD#2 Patient reports: appetite normal, voiding normally, pain well controlled, flatus, bowel movement, ambulating normally [place]: doing well Objective - Vital Signs Latest vital signs: Vital Signs Temp Pulse Resp BP BP Pulse Ox 02/14/19 00:56 98.2 F 20 95/56 02/14/19 00:55 59 L 20 98 02/13/19 18:00 98.5 F 97 H 21 98/45 99 02/13/19 16:09 98.3 F 60 18 92/36 98 02/13/19 08:46 98.5 F 56 L 18 97/42 97 Intake and Output 02/13/19 02/14/19 02/14/19 22:59 06:59 14:59 Intake Total 240 240 Balance 240 240 Intake: Oral 240 240 Other: Total, Intake Amount 240 240 # Voids Void 1 1 - Exam Breasts: Present: deferred Cardiovascular: Present: Regular rate Abdomen: Present: normal appearance, soft Uterus: Present: normal, firm, fundal height at umbilicus Extremities: Present: normal Deep Tendon Reflex Grade: Normal +2 Incision: Present: normal, dry, intact (Steri strips in place) - Labs Labs: Abnormal lab results 02/14/19 02/14/19 02/14/19 Range/Units 00:45 02:41 05:11 WBC 11.8 H (4.5-11.0) K/mm3 RBC 2.87 L (3.65-5.03) M/mm3 Hgb 8.7 L (10.1-14.3) gm/dl Hct 26.0 L (30.3-42.9) % Seg Neutrophils % 71.4 H (40.0-70.0) % Seg Neutrophils # 8.4 H (1.8-7.7) K/mm3 Chloride 110.0 H (98-107) mmol/L Carbon Dioxide 19 L (22-30) mmol/L Creatinine 0.6 L (0.7-1.2) mg/dL Calcium 7.9 L (8.4-10.2) mg/dL Total Creatine Kinase 607 H 581 H (30-135) units/L CK-MB (CK-2) 6.6 H 6.1 H (0.0-4.0) ng/mL Total Protein 5.1 L (6.3-8.2) g/dL Albumin 2.7 L (3.9-5) g/dL
--- NOTE | 2019-02-14 08:46 | Event Note ---
Date: 02/14/19 Agree with [employer] SAL[employer] exam and noted. Will await further recommendations from cardiology and follow enzymes. Pt refuses CT scan at this time.
[2019-02-14] MEDS ORDERED: PANTOPRAZOLE 40 MG INJ IV SCH (10:00)
--- NOTE | 2019-02-14 12:03 | Consultation ---
History of Present Illness Consult date: 02/14/19 Requesting physician: ANTONIO ABBASI Consult reason: chest pain History of present illness: The pt is a 38-year-old -Fijian female with history of HSV and obesity who is s/p delivery on 02/12/19. We are asked to see patient in consultation for chest pain. Pt states that yesterday, she developed int ermittent midsternal non radiating chest pressure which is currently resolved. The chest pain is aggravated by movement, deep inspiration and coughing. Pt denies any SOB, palpitations, n/v, diaphoresis, dizziness or syncope. Pt denies any known prior cardiac issues or cardiac w/u. Past History Past Medical History: other (obesity, HSV) Past Surgical History: (x1 (02/12/2019)), Other ( x1, D&C (05/2016), Gastric Bypass (2010)) Social history: no significant social history, lives with family ([facility]). denies: smoking, alcohol abuse Family history: CAD (maternal grandmother at age 47), diabetes (father DM2) Medications and Allergies Allergies Allergy/AdvReac Type Severity Reaction Status Date / Time diphenhydramine Allergy Mild Shortness Verified 02/12/19 02:13 [From Benadryl] of Breath phenylpropanolamine Allergy Mild Unknown Verified 02/12/19 02:12 [From Dimetapp (brompheniramine-PPA)] brompheniramine Allergy Unknown Verified 02/12/19 02:12 [From Dimetapp (brompheniramine-PPA)] Home Medications Medication Instructions Recorded Confirmed Last Taken Type Vit-Fe Fumar-FA [ 1 tab PO QDAY 10/02/18 02/12/19 02/12/19 13:52 History Vitamin] Ibuprofen [Motrin 800 MG tab] 800 mg PO TID PRN #30 tablet 02/12/19 Unknown Rx Lidocain2.5%/Prilocai2.5% [Emla] 5 gm TP ONCE #1 tube 02/12/19 Unknown Rx oxyCODONE /ACETAMINOPHEN [Percocet 1 tab PO Q6HR PRN #20 tablet 02/12/19 Unknown Rx 5/325 mg] Active Meds: Active Medications Acetaminophen (Tylenol) 650 mg PO Q6H CHERY Last Admin: 02/13/19 05:45 Dose: 650 mg Documented by: Al Hydrox/Mg Hydrox/Simethicone (Alum-Mag Hydrox-Simeth [id number]/5ml) 30 ml PO Q4H PRN PRN Reason: Indigestion Last Admin: 02/14/19 09:10 Dose: 30 ml Documented by: Artificial Tears (Isopto Tears 0.5%) 1 drops OS Q6H PRN PRN Reason: Dry Eye(s) Last Admin: 02/13/19 05:47 Dose: 1 drops Documented by: Dextrose/Lactated Ringer's (D5lr) 1,000 mls @ 125 mls/hr IV DIRECT CHERY Last Admin: 02/12/19 20:34 Dose: 125 mls/hr Documented by: Oxytocin/Sodium Chloride (Pitocin/Ns 20 Unit/1000ml Drip) 20 units in 1,000 mls @ 250 mls/hr IV DIRECT CHERY Ibuprofen (Ibuprofen) 800 mg PO Q6H PRN PRN Reason: Pain, Mild (1-3) Last Admin: 02/14/19 09:09 Dose: 800 mg Documented by: Morphine Sulfate (Morphine) 2 mg IV Q4H PRN PRN Reason: Pain, Moderate (4-6) Last Admin: 02/12/19 17:04 Dose: 2 mg Documented by: Morphine Sulfate (Morphine) 4 mg IV Q4H PRN PRN Reason: Pain , Severe (7-10) Last Admin: 02/13/19 01:02 Dose: 4 mg Documented by: Multi-Ingredient Ointment (Lansinoh) 1 applic TP PRN PRN PRN Reason: dryness/cracking Naloxone HCl (Naloxone) 0.1 mg IV Q2MIN PRN PRN Reason: Res Rate </= 8 or 02 SAT < 92% Nitroglycerin (Nitrostat) 0.4 mg SL Q5M PRN PRN Reason: Chest Pain Oxycodone/Acetaminophen (Percocet 5/325) 1 tab PO Q6H PRN PRN Reason: Pain, Moderate (4-6) Last Admin: 02/14/19 11:54 Dose: 1 tab Documented by: Pantoprazole Sodium (Protonix) 40 mg IV BID CHERY Promethazine HCl (Phenergan) 25 mg LA Q6H PRN PRN Reason: N/V IF NPO AND NO IV ACCESS Simethicone (Mylicon) 80 mg PO Q6H PRN PRN Reason: Gas pain Sodium Chloride (Sodium Chloride Flush Syringe 10 Ml) 10 ml IV PRN NR Stop: 02/22/19 10:59 Witch Crista/Glycerin (Tucks Pad) 1 each TP PRN PRN PRN Reason: Hemorrhoids/cleansing/soothing Review of Systems Constitutional: no weight loss, no weight gain, no fever, no chills, no sweats Ears, nose, mouth and throat: no ear pain, no nose pain, no sinus pressure, no sinus pain Cardiovascular: chest pain, no orthopnea, no palpitations, no rapid/irregular heart beat, no edema, no syncope, no lightheadedness, no shortness of breath, no dyspnea on exertion, no high blood pressure Respiratory: no cough, no shortness of breath, no dyspnea on exertion, no congestion, no wheezing, no pain on inspiration Gastrointestinal: no nausea, no vomiting, no diarrhea, no constipation, no change in bowel habits Genitourinary Female: other (s/p ) Musculoskeletal: no neck stiffness, no neck pain, no shooting arm pain, no arm numbness/tingling, no low back pain, no shooting leg pain Integumentary: other (s/p ) Neurological: no head injury, no paralysis, no weakness, no parathesias, no numbness, no tingling, no seizures, no syncope Psychiatric: no anxiety Endocrine: no cold intolerance, no heat intolerance Hematologic/Lymphatic: no easy bruising, no easy bleeding Allergic/Immunologic: no urticaria, no wheezing Physical Examination Vital Signs Pulse Pulse Ox 60 96 02/12/19 01:53 02/12/19 01:53 General appearance: no acute distress HEENT: Positive: PERRL, Normocephaly, Mucus Membranes Moist Neck: Positive: neck supple, trachea midline Cardiac: Positive: Reg Rate and Rhythm, S1/S2 Lungs: Positive: Decreased Breath Sounds Neuro: Positive: Grossly Intact Abdomen: Positive: Other (s/p ) Skin: Positive: Other (s/p ) Musculoskeletal: No Pain Extremities: Absent: edema Results 02/14/19 00:45 02/14/19 02:41 Cardiac Enzymes 02/14/19 02/14/19 Range/Units 02:41 05:11 AST 34 (5-40) units/L CK-MB (CK-2) 6.6 H 6.1 H (0.0-4.0) ng/mL CBC 02/14/19 Range/Units 00:45 WBC 11.8 H (4.5-11.0) K/mm3 RBC 2.87 L (3.65-5.03) M/mm3 Hgb 8.7 L (10.1-14.3) gm/dl Hct 26.0 L (30.3-42.9) % Plt Count 169 (140-440) K/mm3 Lymph # 2.4 (1.2-5.4) K/mm3 [place] # 0.8 (0.0-0.8) K/mm3 Eos # 0.1 (0.0-0.4) K/mm3 Baso # 0.0 (0.0-0.1) K/mm3 Comprehensive Metabolic Panel 02/14/19 Range/Units 02:41 Sodium 137 (137-145) mmol/L Potassium 4.0 (3.6-5.0) mmol/L Chloride 110.0 H (98-107) mmol/L Carbon Dioxide 19 L (22-30) mmol/L BUN 10 (7-17) mg/dL Creatinine 0.6 L (0.7-1.2) mg/dL Glucose 83 (65-100) mg/dL Calcium 7.9 L (8.4-10.2) mg/dL AST 34 (5-40) units/L ALT 14 (7-56) units/L Alkaline Phosphatase 67 (35-129) units/L Total Protein 5.1 L (6.3-8.2) g/dL Albumin 2.7 L (3.9-5) g/dL - Imaging and Cardiology Echo: pending EKG: report reviewed, image reviewed EKG interpretations - EKG Sinus rhythms and dysrhythmias: sinus rhythm Assessment and Plan Chest pain appears atypical. AMI ruled out. Obtain echo. Chest CTA to r/o PE has been ordered by primary team. However, pt is currently refusing IV contrast as she is concerned it may prohibit her from breast feeding for 24 hours. D/w radiologist on site, Dr. Kaur, who states that the current literature shows no contraindication to after receiving radiologic contrast. This information was relayed to pt's primary RN. The patient has been seen in conjunction with Dr. Ramos who agrees with the assessment and plan of care. - Patient Problems (1) Atypical chest pain Current Visit: Yes Status: Acute (2) Status post section Current Visit: Yes Status: Acute (3) Anemia Current Visit: Yes Status: Acute
--- NOTE | 2019-02-14 12:22 | Progress Note ---
Assessment and Plan Assessment and plan: Patient is a 38-year-old -[place] woman with history of HSV and obesity who is s/p delivery on 02/12/19. Hospitalist consulted for chest pains, which has resolved. It is present with deep inspiration and cough. * pCXR IMPRESSION: 1 No significant abnormality. Acute Atypical Chest Pain -resolved -EKG unrevealing for acute ischemic abnormalities -CXR negative -Continue supportive care -Pain mgmt -Cardiac enzymes reviewed -Cardiology consulted, input noted -patient continues to decline CTA chest and v/q scan because she is -possible GERD related on PPI IV bid Hx Gastric Bypass -2010 -adjust PPI and stop Ibuprofen 800mg S/P - on 02/12/19 -Continue mgmt per primary Thank you for allowing Hospitalist team I will sign off, please call me with any question. I will sign off History Interval history: Patient was seen and examined. Follow-up on current diagnosis. No overnight events reported to me. Patient denies any chest pain, shortness breath, nausea/vomiting or severe headaches. Imaging, nursing note, chart, labs and old chart reviewed. Discussed with patient. Hospitalist Physical - Physical exam Narrative exam: Gen: WDWN, NAD, Awake, Alert, Orientated, cute baby boy MSK: FROM x 4 Neuro: CN 2-12 grossly intact, no obvious focal deficits Psych: calm - Constitutional Vitals: Temp Pulse Resp BP Pulse Ox 98.1 F 65 18 95/52 98 02/14/19 07:52 02/14/19 07:52 02/14/19 07:52 02/14/19 07:52 02/14/19 00:55 General appearance: Present: no acute distress Results - Labs CBC & Chem 7: 02/14/19 00:45 02/14/19 02:41 Labs: Laboratory Last Values WBC 11.8 K/mm3 (4.5-11.0) H 02/14/19 00:45 RBC 2.87 M/mm3 (3.65-5.03) L 02/14/19 00:45 Hgb 8.7 gm/dl (10.1-14.3) L 02/14/19 00:45 Hct 26.0 % (30.3-42.9) L 02/14/19 00:45 MCV 91 fl (79-97) 02/14/19 00:45 MCH 30 pg (28-32) 02/14/19 00:45 MCHC 34 % (30-34) 02/14/19 00:45 RDW 15.1 % (13.2-15.2) 02/14/19 00:45 Plt Count 169 K/mm3 (140-440) 02/14/19 00:45 Lymph % (Auto) 20.2 % (13.4-35.0) 02/14/19 00:45 [place] % (Auto) 7.1 % (0.0-7.3) 02/14/19 00:45 Eos % (Auto) 1.0 % (0.0-4.3) 02/14/19 00:45 Baso % (Auto) 0.3 % (0.0-1.8) 02/14/19 00:45 Lymph # 2.4 K/mm3 (1.2-5.4) 02/14/19 00:45 [place] # 0.8 K/mm3 (0.0-0.8) 02/14/19 00:45 Eos # 0.1 K/mm3 (0.0-0.4) 02/14/19 00:45 Baso # 0.0 K/mm3 (0.0-0.1) 02/14/19 00:45 Seg Neutrophils % 71.4 % (40.0-70.0) H 02/14/19 00:45 Seg Neutrophils # 8.4 K/mm3 (1.8-7.7) H 02/14/19 00:45 Sodium 137 mmol/L (137-145) 02/14/19 02:41 Potassium 4.0 mmol/L (3.6-5.0) 02/14/19 02:41 Chloride 110.0 mmol/L (98-107) H 02/14/19 02:41 Carbon Dioxide 19 mmol/L (22-30) L 02/14/19 02:41 Anion Gap 12 mmol/L 02/14/19 02:41 BUN 10 mg/dL (7-17) 02/14/19 02:41 Creatinine 0.6 mg/dL (0.7-1.2) L 02/14/19 02:41 Estimated GFR > 60 ml/min 02/14/19 02:41 BUN/Creatinine Ratio 17 % 02/14/19 02:41 Glucose 83 mg/dL (65-100) 02/14/19 02:41 Calcium 7.9 mg/dL (8.4-10.2) L 02/14/19 02:41 Total Bilirubin < 0.20 mg/dL (0.1-1.2) 02/14/19 02:41 AST 34 units/L (5-40) 02/14/19 02:41 ALT 14 units/L (7-56) 02/14/19 02:41 Alkaline Phosphatase 67 units/L (35-129) 02/14/19 02:41 Total Creatine Kinase 581 units/L (30-135) H 02/14/19 05:11 CK-MB (CK-2) 6.1 ng/mL (0.0-4.0) H 02/14/19 05:11 CK-MB (CK-2) Rel Index 1.0 (0-4) 02/14/19 05:11 Troponin T < 0.010 ng/mL (0.00-0.029) 02/14/19 05:11 Total Protein 5.1 g/dL (6.3-8.2) L 02/14/19 02:41 Albumin 2.7 g/dL (3.9-5) L 02/14/19 02:41 Albumin/Globulin Ratio 1.1 % 02/14/19 02:41 Syphilis IgG Antibody Non-reactive (NonReactive) 02/12/19 10:15 Blood Type B POSITIVE 02/12/19 03:30 Antibody Screen Negative 02/12/19 03:30 Active Medications - Current Medications Current Medications: Generic Name Dose Route Start Last Admin Trade Name Freq PRN Reason Stop Dose Admin Acetaminophen 650 mg 02/12/19 12:00 02/13/19 05:45 Tylenol PO 650 mg Q6H CHERY Administration Al Hydrox/Mg Hydrox/Simethicone 30 ml 02/14/19 00:29 02/14/19 09:10 Alum-Mag Hydrox-Simeth 740-843-49be/5ml PO 30 ml Q4H PRN Administration Indigestion Artificial Tears 1 drops 02/12/19 17:47 02/13/19 05:47 Isopto Tears 0.5% OS 1 drops Q6H PRN Administration Dry Eye(s) Dextrose/Lactated Ringer's 1,000 mls @ 125 mls/hr 02/12/19 11:00 02/12/19 20:34 D5lr IV 125 mls/hr DIRECT CHERY Administration Oxytocin/Sodium Chloride 20 units in 1,000 mls @ 250 mls/hr 02/12/19 11:00 Pitocin/Ns 20 Unit/1000ml Drip IV DIRECT CHERY Ibuprofen 800 mg 02/13/19 08:45 02/14/19 09:09 Ibuprofen PO 800 mg Q6H PRN Administration Pain, Mild (1-3) Morphine Sulfate 2 mg 02/12/19 11:00 02/12/19 17:04 Morphine IV 2 mg Q4H PRN Administration Pain, Moderate (4-6) Morphine Sulfate 4 mg 02/12/19 11:00 02/13/19 01:02 Morphine IV 4 mg Q4H PRN Administration Pain , Severe (7-10) Multi-Ingredient Ointment 1 applic 02/12/19 11:00 Lansinoh TP PRN PRN dryness/cracking Naloxone HCl 0.1 mg 02/12/19 11:00 Naloxone IV Q2MIN PRN Res Rate </= 8 or 02 SAT < 92% Nitroglycerin 0.4 mg 02/14/19 02:16 Nitrostat SL Q5M PRN Chest Pain Oxycodone/Acetaminophen 1 tab 02/13/19 08:45 02/14/19 11:54 Percocet 5/325 PO 1 tab Q6H PRN Administration Pain, Moderate (4-6) Pantoprazole Sodium 40 mg 02/14/19 10:00 Protonix IV BID CHERY Promethazine HCl 25 mg 02/12/19 11:00 Phenergan MI Q6H PRN N/V IF NPO AND NO IV ACCESS Simethicone 80 mg 02/12/19 11:00 Mylicon PO Q6H PRN Gas pain Sodium Chloride 10 ml 02/12/19 11:00 Sodium Chloride Flush Syringe 10 Ml IV 02/22/19 10:59 PRN NR Witch Crista/Glycerin 1 each 02/12/19 11:00 Tucks Pad TP PRN PRN Hemorrhoids/cleansing/soothing
--- NOTE | 2019-02-14 14:19 | Vascular Lab Report ---
BILATERAL LOWER EXTREMITY VENOUS DOPPLER ULTRASOUND HISTORY: Swelling, pain COMPARISON: None. TECHNIQUE: Grayscale, color and spectral Doppler imaging of the venous system of the bilateral lower extremities was performed. FINDINGS: RIGHT: Greater saphenous vein: Normal venous flow, compressibility, and augmentation. Visualized epigastric vein: Normal blood flow. Sapheno-femoral Junction: Normal venous flow, compressibility and augmentation. Common Femoral Vein: Normal venous flow, compressibility and augmentation. Femoral Vein: Normal venous flow, compressibility and augmentation. Profunda Femoral Vein: Popliteal Vein: Normal venous flow, compressibility and augmentation. Posterior tibial vein: Normal venous flow, compressibility and augmentation. LEFT: Greater saphenous vein: Normal venous flow, compressibility, and augmentation. Visualized epigastric vein: Normal blood flow. Sapheno-femoral Junction: Normal venous flow, compressibility and augmentation. Common Femoral Vein: Normal venous flow, compressibility and augmentation. Femoral Vein: Normal venous flow, compressibility and augmentation. Profunda Femoral Vein: Popliteal Vein: Normal venous flow, compressibility and augmentation. Posterior tibial vein: Normal venous flow, compressibility and augmentation. Additional Findings: None. IMPRESSION: No sonographic evidence of deep or superficial venous thrombosis within the bilateral lower extremiti es. Signer Name: Brennen Kaur MD Signed: 02/14/2019 2:15 PM Workstation Name: [id number]
[2019-02-14] MEDS: ACETAMINOPHEN 325 MG TAB PO SCH (17:46)
[2019-02-15] MEDS: oxyCODONE /ACETAMINOPHEN 5-325MG TAB PO PRN ×2 (04:47→11:09)
[2019-02-15 09:30] VITALS: BP 99/62
--- NOTE | 2019-02-15 12:05 | Discharge Summary ---
Providers - Providers Date of Admission: 02/12/19 05:57 Date of discharge: 02/15/19 Attending physician: LORRAINE FROST 02/12/19 11:00 Consult to Preliminary School Psychologist [CONS] Routine Reason For Exam: 02/14/19 01:24 Consult to Physician [CONS] Routine Comment: Consulting Provider: ELLA MEHTA Physician Instructions: Spoke with Dr Melendez Reason For Exam: Chest pain 02/14/19 02:16 Consult to Cardiology [CONS] Routine Consulting Provider: SUKI IRWIN Reason For Exam: chest pain Primary care physician: LORRAINE FROST Hospitalization Condition: Good Pertinent studies: Echo Procedures: Emergenct c/s, LE dopplers, Echocardiogram, ECG, Abd Xray, CXR, hospitalist and cardiology consults Hospital course: Pt states contractions started around 0230 am on 02/11/2019, and that she SROM for brown fluid on 02/12/2019 @ 0630. She was found to have a cat 3 fht's and underwent emergency c/s. Her post op course was significant for chest pain that she experienced on POD#2. Her evaluation for negative for cardiac etiology, she refused CT chest to evaluate for pulmonary embolism. Today patient requests d/c home, no further episodes of chest pain/pressure/tightness. She has asymptomatic anemia. Will allow home Disposition: DC-01 TO HOME OR SELFCARE - Discharge Diagnoses (1) Anemia Status: Acute Qualifiers: Other causes of anemia: acute posthemorrhagic (2) delivery delivered Status: Acute (3) H/O gastric bypass Status: Chronic Core Measure Documentation - Palliative Care Palliative Care/ Comfort Measures: Not Applicable - Core Measures Any of the following diagnoses?: none Exam - Physical Exam Narrative exam: No complaints, minimal bleeding - Constitutional Vitals: Temp Pulse Resp BP Pulse Ox 98.4 F 77 18 99/62 95 02/15/19 08:22 02/15/19 08:22 02/15/19 08:22 02/15/19 08:22 02/15/19 05:03 General appearance: Present: no acute distress - Neck Neck: Present: supple - Respiratory Respiratory effort: normal Respiratory: bilateral: CTA - Cardiovascular Rhythm: regular - Extremities Extremities: no ischemia, No edema - Abdominal General gastrointestinal: Present: soft, non-tender, non-distended, normal bowel sounds Female genitourinary: Present: other (uterus firm, NT, below umbilicus) - Integumentary Integumentary: Present: clear, warm, dry (incision c/d/i, no s/s infection) - Musculoskeletal Musculoskeletal: strength equal bilaterally - Psychiatric Psychiatric: intact judgment & insight, memory intact, cooperative - Additional findings Additional findings: Breasts: no s/s engorgement or mastitis Plan Activity: other (No sex. Ambulate ~1-2miles a day, ) Weight Bearing Status: Full Weight Bearing Diet: regular Wound: open to air, keep clean and dry Special Instructions: no heavy lifting (Greater than 25lbs) Additional Instructions: Call office Sunday to make an appointment for your postoperative visit and circumcision for your son Care Plan Goals: Call doctor to schedule appointment Call your doctor immediately for: * Fever > 100.5 * Heavy vaginal bleeding ( >1 pad per hour) * Severe persistent headache * Shortness of breath * Reddened, hot, painful area to leg or breast * Drainage or odor from incision. * Keep incision clean and dry at all times and follow doctor's instructions regarding bathing/showering Plan of Treatment: Call doctor to schedule appointment Health Concerns: Emphasized concern for pulmonary embolism(blood clot in lungs) and . Follow up with: LORRAINE FROST MD [Primary Care Provider] - 7 Days Forms: [facility] Discharge Summary Prescriptions: Lidocain2.5%/Prilocai2.5% [Emla] 5 gm TP ONCE #1 tube oxyCODONE /ACETAMINOPHEN [Percocet 5/325 mg] 1 tab PO Q6HR PRN #20 tablet PRN Reason: Pain
== END 2019-02-15 15:36 | disposition home or self-care (01) | DRG 765 ==
LOC: TRG 01:33 → LD 05:57 → TRG 05:57 → OB 10:54
PROVIDERS: ADMIT Obstetrics & Gynecology; ATTEND Obstetrics & Gynecology
PROC: 10D00Z1 Extraction of Products of Conception, Low, Open Approach (ICD-10-PCS; principal; 2019-02-12)
PROC: 0W3G0ZZ Control Bleeding in Peritoneal Cavity, Open Approach (ICD-10-PCS; 2019-02-12)
PROC: 3E0234Z Introduction of Serum, Toxoid and Vaccine into Muscle, Percutaneous Approach (ICD-10-PCS; 2019-02-13)
DX: O77.0 Labor and delivery complicated by meconium in amniotic fluid (principal); D62 Acute posthemorrhagic anemia; O10.92 Unspecified pre-existing hypertension complicating childbirth; O99.214 Obesity complicating childbirth; O76 Abnormality in fetal heart rate and rhythm complicating labor and delivery; O99.52 Diseases of the respiratory system complicating childbirth; O99.02 Anemia complicating childbirth; Z3A.39 39 weeks gestation of pregnancy; Z82.49 Family history of ischemic heart disease and other diseases of the circulatory system; Z37.0 Single live birth; Z98.84 Bariatric surgery status; Z83.3 Family history of diabetes mellitus; Z79.899 Other long term (current) drug therapy; Z23 Encounter for immunization
CPT/HCPCS: 36415; 71045; 74018; 76819; 80053; 82550; 82553; 84484; 85014; 85018; 85025; 85027; 86592; 86850; 86900; 86901; 88305; 88307; 90686; 93005; 93010; 93306; 93970; G0378; C9113; J0330; J0690; J1100; J1885; J2270; J2405; J2590; J2704; J2765; J3010; J3490; J7120; J7121

== ENCOUNTER 2021-11-15 11:18 | Outpatient (CLI) | payer OTHER ==
[2021-11-15 11:54] VITALS: BP 111/69
[2021-11-15] MEDS ORDERED: LACTATED RINGERS 1,000 ML IV SCH (13:00)
== END 2021-11-15 14:40 | disposition home or self-care (01) ==
LOC: TRG 11:18 → APU 11:20 → TRG 14:40
PROVIDERS: ATTEND Student in an Organized Health Care Education/Training Program
DX: Z34.93 Encounter for supervision of normal pregnancy, unspecified, third trimester (principal); Z3A.38 38 weeks gestation of pregnancy
CPT/HCPCS: 59025

== ENCOUNTER 2021-11-22 08:34 | Inpatient (IN) | payer OTHER ==
--- NOTE | 2021-11-21 18:32 | History and Physical Report ---
History of Present Illness Date of examination: 11/15/21 Chief complaint: Repeat delivery History of present illness: EDC Confirmation: 11/26/2021 Gestational Age: 8 6/7 weeks Past History : 6 Term Births: 2 Living Children: 2 Para: 1 Aborta: 3 Elect. Ab: 1 Spont. Ab: 2 # 1 Delivery date: 10[birth year]02/1999 Weeks Gestation: 40 Delivery type: Hours of labor: 12 Anesthesia type: none Delivery location: [facility] Infant Sex: Male weight: 8lbs 9oz Name: Palomo Comments: none # 2 Delivery date: 11/28/2008 Delivery type: EAB # 3 Delivery date: 2017 Delivery type: SAB # 4 Delivery date: 2018 Delivery type: SAB # 5 Delivery date: 02/12/2019 Weeks Gestation: 39 Delivery type: Anesthesia type: general Delivery location: [facility] Infant Sex: male weight: 3070 Comments: MECONIUM CAT 3 TRACING REMOTE FROM DELIVERY Past Medical History: Reviewed history from 07/09/2018 and no changes required: Negative Past Medical History morbidly obese lost 133 pounds Past Surgical History: Reviewed and updated today: Gastric Bypass: (2010) sleeve Risk Factors: Smoked Tobacco Use: Never smoker Smokeless Tobacco Use: Never Counseled to Quit/Cut Down: yes Passive Smoke Exposure: no HIV High Risk Behavior: no Exercise: yes Times/wk: 3 Type of Exercise: Hiking Exercise Counseling: yes Seatbelt Use: preg-tour counselor % Sun Exposure: rarely Family History Risk Factors: Family History of OR in 1 Female Relative Age < 65: no Family History of OR in 1 Male Relative Age < 55: no No Dietary Counseling Reason: pn yes Alcohol Use: no Drug Use: no Past Medical History Anesthesia Complications: negative Anemia: negative Autoimmune Disorder: negative Bleeding Disorder: negative Blood Transfusions: negative Breast Disease: negative Diabetes: negative Heart Disease: negative Hypertension: negative Hepatitis/Liver Disease: negative Kidney Disease/UTI: negative Neurologic/Epilepsy/Migraines: negative Phlebitis/Varicosities: negative Psychiatric: negative Pulmonary Disease/Asthma: negative Thyroid Disease: negative Hospitalizations: negative Surgery (Non-gas plumber): Gastric Bypass: (2010) sleeve, Abnormal PAP: negative PAMELA Exposure: negative Infertility: negative Uterine Anomaly: negative Uterine Surgery (not C/S): negative Other Gynecologic Problems: negative Social Hx: Marital Status: Single Children: 2 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 Infection History Hx of STD: none HIV Risk Eval: no Hepatitis B Risk Eval: low risk Personal hx. of genital herpes: no Partner hx. of genital herpes: no Rash, Viral, or Febrile illness since last LMP? no Varicella/Chicken Pox Status: Previous Disease TB Risk: no Genetic History ADVANCED MATERNAL AGE Congenital Heart Defect: Mom: no Dad: no Jason Disease: Mom: no Dad: no Thalassemia Mom: no Dad: no Neural Tube Defect Mom: no Dad: no Down's Syndrome Mom: no Dad: no Jon-Sachs Mom: no Dad: no Sickle Cell Disease/Trait Mom: no Dad: no Hemophilia Mom: no Dad: no Muscular Dystrophy Mom: no Dad: no Cystic Fibrosis Mom: no Dad: no [place] Chorea Mom: no Dad: no Mental Retardation Mom: no Dad: no Fragile X Mom: no Dad: no Other Genetic/Chromosomal Disorder Mom: no Dad: no Child w/other defect Mom: no Dad: no Enviromental Exposures Xray Exposure: no Medication, drug, or alcohol use since LMP: no Chemical/Other Exposure: no Exposure to Cat Liter: no Hx of Parvovirus (Fifth Disease): no Occupational Exposure to Children: none Active Medications (reviewed today): pnv () Current Allergies (reviewed today): BENADRYL (Critical) DIMETAPP (Critical) 05/23/2021: HBsAg Screen Negative Negative *1 RPR Non Reactive Non Reactive *2 Rubella Antibodies, IgG 5.17 index Immune >0.99 *3 Non-immune <0.90 Equivocal 0.90 - 0.99 Immune >0.99 ABO Grouping B *4 Rh Factor Positive *5 Please note: Prior records for this patient's ABO / Rh type are not available for additional verification. Antibody Screen Negative Negative *6 WBC 8.3 x10E3/uL 3.4-10.8 *7 RBC 3.97 x10E6/uL 3.77-5.28 *8 Hemoglobin 11.4 g/dL 11.1-15.9 *9 Hematocrit 34.2 % 34.0-46.6 *10 MCV 86 fL 79-97 *11 MCH 28.7 pg 26.6-33.0 *12 MCHC 33.3 g/dL 31.5-35.7 *13 RDW 13.9 % 11.7-15.4 *14 Platelets 254 x10E3/uL 150-450 *15 Neutrophils 64 % Not Estab. *16 Lymphs 25 % Not Estab. *17 Monocytes 9 % Not Estab. *18 Eos 2 % Not Estab. *19 Basos 0 % Not Estab. *20 ! Immature Cells <No Reported Value> *21 Neutrophils (Absolute) 5.3 x10E3/uL 1.4-7.0 *22 Lymphs (Absolute) 2.1 x10E3/uL 0.7-3.1 *23 Monocytes(Absolute) 0.7 x10E3/uL 0.1-0.9 *24 Eos (Absolute) 0.1 x10E3/uL 0.0-0.4 *25 Baso (Absolute) 0.0 x10E3/uL 0.0-0.2 *26 ! Immature Granulocytes 0 % Not Estab. *27 ! Immature Grans (Abs) 0.0 x10E3/uL 0.0-0.1 *28 ! NRBC <No Reported Value> *29 Hematology Comments: <No Reported Value> *30 Tests: (2) HB Solu + Rflx Frac ([id number]) Hemoglobin (Hgb) Solubility Negative Negative *31 Tests: (3) HIV Ab/p24 Ag with Reflex ([id number]) HIV Ab/p24 Ag Screen Non Reactive Non Reactive *32 HIV Negative HIV-1/HIV-2 antibodies and HIV-1 p24 antigen were NOT detected. There is no laboratory evidence of HIV infection. Tests: (4) HCV Antibody reflex to JOE ([id number]) HCV Ab <0.1 s/co ratio 0.0-0.9 *33 Tests: (5) Interpretation: ([id number]) ! Interpretation: SPRCS *34 Negative Not infected with HCV, unless recent infection is suspected or other evidence exists to indicate HCV infection. Effective June 27, 2021 HCV Antibody reflex to JOE will be made non-orderable. This will affect any Custom Profile that includes [id number] HCV Antibody reflex to JOE. [facility] offers order code [id number] HCV Antibody RFX to Quant PCR as an alternative. Tests: (6) Urine Culture, Routine ([id number]) Urine Culture, Routine Final report *35 Tests: (7) Result ([id number]) ! Result 1 MUG *36 Mixed urogenital jacky 50,000-100,000 colony forming units per mL 10/24/2021: Tests: (1) RPR, Rfx Qn RPR/Confirm TP ([id number]) RPR Non Reactive Non Reactive *1 Tests: (2) HIV Ab/p24 Ag with Reflex ([id number]) HIV Ab/p24 Ag Screen Non Reactive Non Reactive *2 HIV Negative HIV-1/HIV-2 antibodies and HIV-1 p24 antigen were NOT detected. There is no laboratory evidence of HIV infection. Chlamydia by JOE Negative Negative *1 Gonococcus by JOE Negative Negative *2 Trich vag by JOE Negative Negative *3 Tests: (2) Strep Gp B JOE ([id number]) ! Strep Gp B JOE Negative Negative Physical Exam General appearance: well nourished, healthy appearing, no distress Chest/Lungs: respiratory effort normal, lungs clear to auscultation Cardiovascular: normal rate and rhythm Abdomen/GI: soft, nontender Impression & Recommendations: Problem # 1: Maternal care for low transverse scar from previous delivery (DEI68-H11.211) Consent reviewed and signed . The risks and alternatives for this surgery were reviewed with the patient. She was informed of possible bleeding, infection, injury to bowel, bladder, ureters or other adjacent organs. The patient was instructed/informed the following: The normal length of hospital stay for this procedure. Nothing to eat or drink after midnight the evening prior to surgery. The usual discomforts associated with this procedure were detailed. Proper use of pain medicines was reviewed. Patient was given ample opportunity to have all her questions answered before signing informed consent. She declines sterilization at this time. Problem # 2: Maternal care for other known or suspected poor growth, third trimester, not applicable or unspecified (ICD-764.90) (SJB17-O16.5930) Problem # 3:Genital herpes (ICD-054.10) (MMG27-D26.00) on suppression therapy now Problem # 4:Advanced Maternal Age (MNO95-Z35.529) Past History - Obstetrical History Expected Date of Delivery: 11/26/21 Actual Gestation: 39 Week(s) 2 Day(s) : 5 Medications and Allergies Allergies Allergy/AdvReac Type Severity Reaction Status Date / Time diphenhydramine Allergy Mild Shortness Verified 11/14/21 11:33 [From Benadryl] of Breath phenylpropanolamine Allergy Mild Unknown Verified 11/14/21 11:33 [From Dimetapp (brompheniramine-PPA)] brompheniramine Allergy Unknown Verified 11/14/21 11:33 [From Dimetapp (brompheniramine-PPA)] Home Medications Medication Instructions Recorded Confirmed Last Taken Type Vit-Fe Fumar-FA [ 1 tab PO QDAY 10/02/18 11/14/21 02/12/19 13:52 History Vitamin] Aspirin [Potosi Aspirin EC] 81 mg PO QDAY 11/14/21 11/14/21 Unknown History Active Meds: Active Medications Citric Acid/Sodium Citrate (Bicitra Oral Liqd 30ml) 30 ml PO ONCE ONE Stop: 11/22/21 08:01 Famotidine (Famotidine 20 Mg/2 Ml Inj) 20 mg IV ONCE ONE Stop: 11/22/21 08:01 Lactated Ringer's (Lactated Ringers) 1,000 mls @ 2,250 mls/hr IV PREOP CHERY Stop: 11/23/21 08:27 Oxytocin/Sodium Chloride (Pitocin/Ns 30 Unit/500ml) 30 units in 500 mls @ 0 mls/hr IV TITR CHERY; Protocol Cefazolin Sodium (Ancef/Sterile Water 2 Gm/20 Ml) 2 gm in 20 mls @ 80 mls/hr IV PREOP NR; Protocol Metoclopramide HCl (Metoclopramide 10 Mg/2 Ml Inj) 10 mg IV ONCE ONE Stop: 11/22/21 08:01 Results All other labs normal. Assessment and Plan - Patient Problems (1) AMA (advanced maternal age) multigravida 35+ Status: Acute (2) IUGR (intrauterine growth restriction) Status: Acute (3) HSV (herpes simplex virus) infection Status: Acute (4) 39 weeks gestation of Status: Acute
[~2021-11-22 08:34] MED LIST: BICITRA ORAL LIQD 30ML PO ONE; FAMOTIDINE 20 MG/2 ML INJ IV ONE; METOCLOPRAMIDE 10 MG/2 ML INJ IV ONE; OXYTOCIN DRIP 30 UNITS/500 ML BAG IV SCH; ceFAZolin/Water 2 GM/20 ML 2 GM/20 ML SYRINGE IV NR
[2021-11-22 10:55] LABS: Hematocrit 32.1 % (30.3-42.9); Hemoglobin 10.2 gm/dl (10.1-14.3); Mean Corpuscular HGB Conc 32 % (30-34); Mean Corpuscular Volume 76 fl (79-97); Platelet Count 286 K/mm3 (140-440); Red Blood Count 4.21 M/mm3 (3.65-5.03); Red Cell Distribution Width 15.5 % (13.2-15.2)
[2021-11-22] MEDS ORDERED: METOCLOPRAMIDE 10 MG/2 ML INJ IV ONE (12:00)
[2021-11-22] MEDS ORDERED: BICITRA ORAL LIQD 30ML PO ONE (12:00)
[2021-11-22] MEDS ORDERED: FAMOTIDINE 20 MG/2 ML INJ IV ONE (12:00)
[2021-11-22] MEDS: LACTATED RINGERS 1,000 ML IV SCH ×2 (12:00→12:47)
[2021-11-22] MEDS ORDERED: ONDANSETRON 4 MG/2 ML INJ ONE (12:59)
[2021-11-22] MEDS ORDERED: BUPIVACAINE/PF (0.5%) 5 MG/1 ML 30 ML VIAL INFILTRATI ONE (13:00)
[2021-11-22] MEDS ORDERED: SODIUM CHLORIDE 0.9% IRR 1,500 ML BOTTLE IR ONE (13:43)
[2021-11-22] MEDS ORDERED: WATER FOR IRRIG STERILE 1,500 ML BOTTLE IR ONE (13:43)
[2021-11-22] MEDS ORDERED: ceFAZolin/STERILE WATER 2 GM/20 ML SYRINGE IV ONE (13:43)
[2021-11-22] MEDS ORDERED: KETOROLAC 30 MG/1 ML INJ IV PRN (14:24)
--- NOTE | 2021-11-22 14:24 | Operative Report ---
Operative Report Operative Report: Date of procedure: 11/22/2021 Pre-operative diagnosis: 39 weeks gestation Previous section Advanced maternal age Maternal obesity Post-operative diagnosis: Same Procedure name(s): Repeat low transverse section via Pfannenstiel skin incision Surgeon: Dr. Padilla Skilled Trades Teacher: YESSICA Anesthesia: Combined spinal epidural EBL: Q. BL 1204 mL Urine output: 100 mL of clear urine out at the end procedure Fluids: 1700 mL Findings: Liveborn female Apgars of 8 and 9 at 1 and 5 minutes weight 6 pounds 3 ounces Nuchal and body cord x1 loose Normal uterus with well-developed lower uterine segment Grossly normal fallopian tubes and ovaries bilaterally Indications: Patient presents for scheduled P section. All risk benefits and alternatives were discussed with the patient. Consents were signed and placed on the chart. Procedure: Patient was taking to the operating room. Patient was then prepped and draped in sterile fashion after anesthesia was found to be adequate. A low transverse skin incision was made with the scalpel through previous incisional scar and carried down to the underlying layer of fascia with the Bovie. The fascia was then incised in the midline and this incision was extended bilaterally with the Bovie. The superior aspect of the fascia was grasped with Josh clamps tented upward and dissected off of the anterior rectus muscles with the scalpel. In similar fashion the inferior aspect of the fascia was grasped with Josh clamps tented upward and dissected off of the anterior rectus muscles. The rectus muscles were then bluntly divided in the midline. The peritoneum was identified and entered into sharply. The bladder blade was placed. The Rebel retractor was placed. The bladder blade was replaced. A lower transverse uterine incision was made with the scalpel and extended bilaterally with the bandage scissors. Artificial rupture of membranes was performed yielding [clear amniotic fluid]. The 's head was then delivered atraumatically. Nuchal cord noted above was easily reduced. The anterior shoulder and rest of delivered without difficulty. The umbilical cord was clamped x2. The cord was cut. The infant was then placed in sterile bassinet. Delete. The placenta was manually extracted in its entirety. The uterus was exteriorized and cleared of all clots and debris. The uterine incision was closed using 0 Vicryl in a running locking fashion. [ A second imbricating layer of the same suture was then created.] The posterior cul-de-sac was copiously irrigated. The uterus was returned to the abdomen. The gutters were also irrigated. The anterior rectus muscles were reapproximat ed using 3-0 Vicryl. The anterior rectus fascia was reapproximated using 0 Vicryl in a running fashion. The subcuticular fat was reapproximated using 2-0 Vicryl in a running fashion. The skin was reapproximated with 4-0 Monocryl in a subcuticular stitch. The patient tolerated the procedure well. Sponge lap and needle counts were all correct x3. Patient was taken to the recovery room awake and in stable condition.
[2021-11-22] MEDS ORDERED: HYDROmorphone 1 MG/1 ML INJ IV PRN ×2 (14:50)
[2021-11-22] MEDS ORDERED: ONDANSETRON 4 MG/2 ML INJ IV PRN ×2 (14:50→15:00)
[2021-11-22] MEDS ORDERED: NALOXONE 0.4 MG/1 ML INJ IV PRN ×2 (14:50→15:00)
[2021-11-22] MEDS ORDERED: MORPHINE 4 MG/1 ML INJ IV PRN (14:50)
--- NOTE | 2021-11-22 14:52 | Anesthesia Consultation ---
Anesthesia Consult and Med Hx Date of service: 11/22/21 - Airway Anesthetic Teeth Evaluation: Good ROM Head & Neck: Adequate Mental/Hyoid Distance: Adequate Mallampati Class: Class II Intubation Access Assessment: Probably Good - Pulmonary Exam CTA: Yes - Cardiac Exam Cardiac Exam: RRR - Pre-Operative Health Status ASA Pre-Surgery Classification: ASA2 Proposed Anesthetic Plan: Spinal Nerve Block: Curtis Tap - Pulmonary Hx Smoking: No Hx Asthma: Yes (child) Hx Respiratory Symptoms: No SOB: No COPD: No Home Oxygen Therapy: No Hx Pneumonia: No Hx Sleep Apnea: No - Cardiovascular System Hx Hypertension: No (last 1999) Hx Coronary Artery Disease: No Hx Heart Attack/AMI: No Hx Angina: No Hx Percutaneous Transluminal Coronary Angioplasty (PTCA): No Hx Cardia Arrhythmia: No Hx Pacemaker: No Hx Internal Defibrillator: No Hx Valvular Heart Disease: No Hx Heart Murmur: No Hx Peripheral Vascular Disease: No - Central Nervous System Hx Neuromuscular Disorder: No Hx Seizures: No CVA: No Hx Back Pain: No Hx Psychiatric Problems: No - Gastrointestinal Hx Ulcer: No Hx Gastroesophageal Reflux Disease: No - Endocrine Hx Renal Disease: No Hx End Stage Renal Disease: No Hx Cirrhosis: No Hx Liver Disease: No Hx Insulin Dependent Diabetes: No Hx Non-Insulin Dependent Diabetes: No Hx Thyroid Disease: No Hx Hypothyroidism: No Hx Hyperthyroidism: No - Hematic Hx Anemia: No Hx Sickle Cell Disease: No - Other Systems Hx Alcohol Use: No Hx Substance Use: No Hx Cancer: No Hx Obesity: No
--- NOTE | 2021-11-22 14:52 | Anesthesia Day of Surgery ---
Anesthesia Day of Surgery - Day of Surgery Patient Examined: Yes Patient H&P Reviewed: Yes Patient is NPO: Yes Beta Blockers: No Cardiac Clearance: No Pulmonary Clearance: No Sanford's Test: N/A
--- NOTE | 2021-11-22 14:53 | Progress Note ---
Spinal Anesthesia Block - Spinal Anesthesia Block Start Time: 13:11 Stop Time: 13:29 Performed by:: JOJO SCHULZ Procedure: The patient was placed in a sitting position on the OR table and monitors applied. A timeout was performed immediately prior to the start of the procedure. The patient was Prepped and draped in a sterile fashion and the skin was localized with 3 mL 1% lidocaine at L[4]-L[5] interspace. An introducer was placed into the back between L4-L5 and a 25g spinal needle was advanced into the intrathecal space until clear, free flowing CSF was observed. 1.8cc of 0.75% hyperbaric bupivacaine + 5mcg Precedex was injected into the intrathecal space and the spinal needle was removed. The patient tolerated the procedure well and there were no immediate complications noted.
--- NOTE | 2021-11-22 14:54 | Progress Note ---
Regional Anesthesia Block - Regional Anesthesia Block Start Time: 14:35 Stop Time: 14:40 Performed By:: JOJO SCHULZ Procedure: . After Pts C/S was completed a time out was performed prior to the start of the procedure. The Trans Abdominal Plane was identified bilaterally via ultrasound. The skin was prepped bilaterally with chlorhexidine and a 22g stimuplex needle was advanced to the area between the internal oblique muscle a nd the trans abdominal plane. Marcaine 0.25% 30mlwas injected under ultrasound guidance on the left and right side. Negative aspiration every 5mL, There was no change in the patients heart rate or rhythm and the patient tolerated the procedure well. No apparent complications were observed.
[2021-11-22] MEDS ORDERED: SIMETHICONE 80 MG CHEW TAB PO PRN (15:00)
[2021-11-22] MEDS ORDERED: WITCH HAZEL/ GLYCERIN PAD TP PRN (15:00)
[2021-11-22] MEDS ORDERED: fentaNYL-BUPIV 2 MCG/ML-0.125% 200 MCG/100 ML BAG EPIDURAL SCH (15:00)
[2021-11-22] MEDS ORDERED: LANOLIN/ZINC/DIMETHICONE (LANSINOH) 7 GM TP PRN (15:00)
[2021-11-22] MEDS ORDERED: ePHEDrine SULFATE 50 MG/1 ML INJ IV PRN (15:30)
[2021-11-22] MEDS ORDERED: PROMETHAZINE 25 MG TAB PO PRN (15:30)
[2021-11-22] MEDS ORDERED: PROMETHAZINE 25 MG RECT SUPP PR PRN (15:30)
[2021-11-22] MEDS: KETOROLAC 30 MG/1 ML INJ IV PRN ×2 (16:48→23:10)
[2021-11-22] MEDS: ceFAZolin/NS 1 GM/50 ML 1 GM/50 ML BAG IV SCH (16:50)
[2021-11-22] MEDS ORDERED: LACTATED RINGERS 1,000 ML IV SCH (17:00)
[2021-11-22] MEDS: MORPHINE 4 MG/1 ML INJ IV PRN (19:55)
[2021-11-23] MEDS: ceFAZolin/NS 1 GM/50 ML 1 GM/50 ML BAG IV SCH ×2 (01:24→02:15)
[2021-11-23] MEDS: MORPHINE 4 MG/1 ML INJ IV PRN ×2 (02:00→05:58)
[2021-11-23 05:41] LABS: Hematocrit 23.5 % (30.3-42.9); Hemoglobin 7.8 gm/dl (10.1-14.3)
--- NOTE | 2021-11-23 07:04 | Progress Note ---
Assessment and Plan - Patient Problems (1) delivery delivered Current Visit: No Status: Acute Plan to address problem: Continue pathway. Subjective - Subjective Date of service: 11/23/21 Patient reports: appetite normal, voiding normally, pain well controlled [place]: doing well, nursing well Objective - Vital Signs Latest vital signs: Vital Signs Temp Pulse Resp BP BP Pulse Ox Pulse Ox 11/23/21 06:25 99 11/23/21 05:58 18 98 11/23/21 05:09 97.9 F 72 20 97/43 96 11/23/21 02:30 98 11/23/21 02:00 18 99 11/23/21 00:44 97.9 F 56 L 18 99/42 94 11/22/21 23:10 18 99 11/22/21 21:03 97.9 F 65 18 98/51 96 11/22/21 20:25 99 11/22/21 19:55 18 98 11/22/21 16:48 20 11/22/21 16:25 98.4 F 61 20 98/48 98 11/22/21 16:20 98 11/22/21 15:40 97.2 F L 70 22 103/54 11/22/21 15:36 70 22 93/39 11/22/21 15:20 77 17 93/43 11/22/21 15:05 100 H 20 95/49 11/22/21 14:50 106 H 13 88/53 11/22/21 14:40 94 H 17 89/50 11/22/21 14:35 88 17 98/49 11/22/21 14:32 97.1 F L 98 H 16 95/44 11/22/21 12:55 81 100 11/22/21 12:50 60 100 11/22/21 12:45 59 L 100 11/22/21 12:40 61 100 11/22/21 12:35 62 100 11/22/21 12:30 68 99 11/22/21 12:25 61 99 11/22/21 12:20 62 99 11/22/21 12:15 62 100 11/22/21 12:10 90 100 11/22/21 12:05 57 L 100 11/22/21 12:00 59 L 100 11/22/21 11:55 56 L 100 11/22/21 11:50 57 L 100 11/22/21 11:45 61 100 11/22/21 11:40 60 100 11/22/21 11:35 56 L 100 11/22/21 11:30 57 L 100 11/22/21 11:25 55 L 100 11/22/21 11:20 56 L 99 11/22/21 11:15 52 L 99 11/22/21 11:10 59 L 100 11/22/21 11:05 71 100 11/22/21 11:00 77 100 11/22/21 10:55 73 99 11/22/21 10:50 64 100 11/22/21 10:45 73 99 11/22/21 10:40 67 98 11/22/21 10:35 54 L 99 11/22/21 10:30 54 L 99 11/22/21 10:25 64 99 11/22/21 10:20 54 L 99 11/22/21 10:15 63 100 11/22/21 10:10 59 L 112/74 99 11/22/21 09:50 98.2 F 99 Intake and Output 11/22/21 11/22/21 11/23/21 15:59 23:59 07:59 Intake Total 3050 850 240 Output Total 200 2600 1200 Balance 2850 -1750 -960 Intake: IV 3050 50 ANCEF/NS 1 GM/50 ML 1 gm 50 In 50 ml @ 100 mls/hr IV Q8H [facility] Rx#:[id number] Lactated Ringers 1,000 ml 1000 @ 2250 mls/hr IV PREOP [facility] Rx#:[id number] Oral 320 Intake, Free Water 480 240 Output: Urine 200 2600 1200 Indwelling 50 1100 300 Indwelling Catheter 1500 Void 900 Other: Total, Intake Amount 200 Total, Output Amount 600 900 Weight 102.058 kg Estimated Blood Loss 1,204 - Exam Narrative Exam: Pt in bed resting, FOC at bedside. Voiced doing well, pain under control. Encouraged use of ABD binder when out of bed and moving. Currently only. Fundus firm, Lochia normal. Surgical dressing to site clean dry and intact. Discussed dressing removal after she showers around 1400. Will notify nurse. Undecided about b/c, states partner is getting sterilization, in mean time may get IUD at [facility]. Anticipate discharge for tomorrow. Breasts: Present: normal Cardiovascular: Present: Regular rate Lungs: Present: Clear to auscultation, Normal air movement Abdomen: Present: normal appearance Uterus: Present: normal, firm Extremities: Present: normal Incision: Present: normal, dry, intact Comments: Surgical dressing present, clean, dry, and intact. - Labs Labs: Abnormal lab results 11/22/21 11/23/21 Range/Units 10:09 05:26 Hgb 7.8 L (10.1-14.3) gm/dl Hct 23.5 L D (30.3-42.9) % MCV 76 L (79-97) fl MCH 24 L (28-32) pg RDW 15.5 H (13.2-15.2) %
[2021-11-23] MEDS ORDERED: TETANUS,DIPH,PERTUSS(ACELL) VACCINE 0.5 ML SYRINGE IM ONE (10:00)
[2021-11-23] MEDS: HYDROcodone/ACETAMINOPHEN 5-325 MG TAB PO PRN ×2 (10:21→18:18)
[2021-11-23] MEDS: IBUPROFEN 800 MG TAB PO PRN ×2 (14:15→22:09)
[2021-11-24] MEDS: HYDROcodone/ACETAMINOPHEN 5-325 MG TAB PO PRN ×3 (02:33→13:30)
--- NOTE | 2021-11-24 05:55 | Post Anesthesia Evaluation ---
- Post Anesthesia Evaluation Patient Participated: No Airway Patent: Yes Stable Respiratory Function: Yes Nausea/Vomiting: No Temp > 96.8F: Yes Pain Manageable: Yes Adequeate Hydration: Yes Anesthesia Complications: No Block Receding Appropriately: Yes Patient on Ventilator: No
--- NOTE | 2021-11-24 06:05 | Discharge Summary ---
Providers - Providers Date of Admission: 11/22/21 09:24 Date of discharge: 11/24/21 Attending physician: BRANDON RICO Primary care physician: BRANDON RICO Hospitalization Condition: Good Pertinent studies: Post op H/H 7.5/23.5 Disposition: 01 HOME / SELF CARE / HOMELESS Final Discharge Diagnosis (Prints w/discharge instructions): S/p repeat c/s Time spent for discharge: 20 - Discharge Diagnoses (1) delivery delivered Status: Acute Core Measure Documentation - Palliative Care Palliative Care/ Comfort Measures: Not Applicable - Core Measures Any of the following diagnoses?: none Exam - Physical Exam Narrative exam: Pt in bed resting, FOC at bedside. Voiced doing well and ready to go. Reports pain under control and staying ahead of it. Currently only. Fundus firm, Lochia normal. Incision site open to air with steri strip, dry and i ntact, small old drainage noted. Instructed to call office make an appt in 1 week for incision check and 6 weeks for ppv. Undecided on control will decide by ppv. Denies any questions or concerns at this time. f/u in 1 week. - Constitutional Vitals: Temp Pulse Resp BP Pulse Ox 98.2 F 57 L 18 106/46 99 11/24/21 02:02 11/24/21 02:02 11/24/21 03:33 11/24/21 02:02 11/24/21 02:02 General appearance: Present: no acute distress, well-nourished - EENT Eyes: Present: PERRL ENT: hearing intact, clear oral mucosa - Neck Neck: Present: supple, normal ROM - Respiratory Respiratory effort: normal Respiratory: bilateral: CTA - Cardiovascular Heart Sounds: Present: S1 & S2. Absent: rub, click - Extremities Extremities: pulses symmetrical Extremity abnormal: edema (BLE Trace edema) Peripheral Pulses: within normal limits - Abdominal General gastrointestinal: Present: soft, non-tender, non-distended, normal bowel sounds Female genitourinary: Present: normal - Integumentary Integumentary: Present: clear, warm, dry - Musculoskeletal Musculoskeletal: gait normal, strength equal bilaterally - Psychiatric Psychiatric: appropriate mood/affect, intact judgment & insight - Neurologic Neurologic: moves all extremities - Additional findings Additional findings: Incision open to air with steri strips, dry and intact, no s/s of infx, or old drainage noted. Plan Activity: advance as tolerated Weight Bearing Status: Non-Weight Bearing Diet: regular Wound: open to air, keep clean and dry Follow up with: BRANDON RICO MD [Primary Care Provider] - 7 Days (Congratulations! Thanks for allowing us to care for you. Please call office at [phone] to schedule an appointment in 1 week for incision check. Also, schedule a visit in 6 weeks. Please call office if you have any questions or concerns after discharge.) Prescriptions: Docusate Sodium [Colace] 100 mg PO BID PRN #60 capsule PRN Reason: Constipation Ferrous Sulfate [Feosol 325 MG tab] 325 mg PO QDAY #60 tablet Ibuprofen [Motrin 800 MG tab] 800 mg PO Q8HR PRN #60 tablet PRN Reason: Pain, Moderate (4-6) oxyCODONE /ACETAMINOPHEN [Percocet 5/325] 1 tab PO Q4HR #30 tab
[2021-11-24] MEDS: IBUPROFEN 800 MG TAB PO PRN (06:36)
[2021-11-24] MEDS ORDERED: FERROUS SULFATE 325 MG TAB PO SCH (10:00)
[2021-11-24 17:36] VITALS: BP 103/59
== END 2021-11-24 17:00 | disposition home or self-care (01) | DRG 765 ==
LOC: APU 09:24 → OB 15:51
PROVIDERS: ADMIT Obstetrics & Gynecology; ATTEND Obstetrics & Gynecology
PROC: 10D00Z1 Extraction of Products of Conception, Low, Open Approach (ICD-10-PCS; principal; 2021-11-22)
PROC: 3E0234Z Introduction of Serum, Toxoid and Vaccine into Muscle, Percutaneous Approach (ICD-10-PCS; 2021-11-23)
DX: O34.211 Maternal care for low transverse scar from previous cesarean delivery (principal); O98.32 Other infections with a predominantly sexual mode of transmission complicating childbirth; Z20.822 Contact with and (suspected) exposure to COVID-19; B00.9 Herpesviral infection, unspecified; E66.01 Morbid (severe) obesity due to excess calories; O69.81X0 Labor and delivery complicated by cord around neck, without compression, not applicable or unspecified; O36.5930 Maternal care for other known or suspected poor fetal growth, third trimester, not applicable or unspecified; Z23 Encounter for immunization; Z37.0 Single live birth; Z3A.39 39 weeks gestation of pregnancy; Z88.8 Allergy status to other drugs, medicaments and biological substances; Z88.6 Allergy status to analgesic agent; O99.214 Obesity complicating childbirth
CPT/HCPCS: 36415; 85014; 85018; 85027; 86592; 86850; 86900; 86901; 88307; G0378; J3490; J0690; J1885; J2270; J2405; J2765; J7120; U0003